=== PATIENT | male | born 1990 | race African-American/Black ===

== ENCOUNTER 2017-08-24 08:49 | Emergency (ER) | payer SELFPAY ==
[2017-08-24 09:09] LABS: ADD MAN DIFF? NO
[2017-08-24] MEDS ORDERED: ONDANSETRON PF 4 MG/2 ML VIAL. ×2 (09:10)
[2017-08-24 09:13] LABS: BASO # 0.1 x10^3/uL (0.0-0.2); BASO % 1 % (0-3); EOS % 0 % (0-3); HEMATOCRIT 49.5 % (39.0-53.0); HEMOGLOBIN 16.6 g/dL (13.0-17.5); LYMPH # 1.5 x10^3/uL (1.0-4.8); LYMPH % 16 % (24-48); MEAN CORPUSCULAR HEMOGLOBIN 34 pg (25-35); MEAN CORPUSCULAR HGB CONC 34 g/dL (31-37); MEAN CORPUSCULAR VOLUME 101 fL (79-100); MONO # 0.5 x10^3/uL (0.0-1.1); MONO % 6 % (0-9); NEUT # 7.1 x10^3uL (1.8-7.7); NEUT % 78 % (31-73); PLATELET COUNT 290 x10^3/uL (140-400); RED BLOOD COUNT 4.91 x10^6/uL (4.30-5.70); RED CELL DISTRIBUTION WIDTH 12.7 % (11.5-14.5); WHITE BLOOD COUNT 9.2 x10^3/uL (4.0-11.0)
[2017-08-24] MEDS: ONDANSETRON PF 4 MG/2 ML VIAL. IV ×2 (09:19)
[2017-08-24] MEDS: IV NORMAL SALINE 1000ML BAG 1,000 ML IV ×4 (09:20→11:21)
[2017-08-24 09:29] LABS: ANION GAP 13 (6-14); BLOOD UREA NITROGEN 13 mg/dL (8-26); CALCIUM 9.8 mg/dL (8.5-10.1); CARBON DIOXIDE 23 mmol/L (21-32); CHLORIDE 103 mmol/L (98-107); CREATININE 1.1 mg/dL (0.7-1.3); GFR 79.1; GLUCOSE 137 mg/dL (70-99); SODIUM 139 mmol/L (136-145)
[2017-08-24 09:36] LABS: ALBUMIN 4.1 g/dL (3.4-5.0); ALK PHOS 94 U/L (46-116); ALT (SGPT) 21 U/L (16-63); AST (SGOT) 22 U/L (15-37); DIRECT BILIRUBIN 0.1 mg/dL (0.0-0.2); LIPASE 93 U/L (73-393); TOTAL BILIRUBIN 0.4 mg/dL (0.2-1.0); TOTAL PROTEIN 8.1 g/dL (6.4-8.2)
[2017-08-24 09:42] LABS: CKMB INDEX 0.3 % (0-4); CKMB MASS 1.2 ng/mL (0.0-3.6); CREATINE KINASE 395 U/L (39-308)
[2017-08-24] MEDS: HALOPERIDOL LACTATE 5 MG/ML VIAL. IVP ×2 (11:36)
== END 2017-08-24 12:30 | disposition home or self-care (01) ==
LOC: ER 08:49
DX: R11.2 Nausea with vomiting, unspecified (principal)
CPT/HCPCS: 36415; 80048; 80076; 82553; 83690; 85025; 96360; 96361; 96374; 96375; 99285-25; J1630; J2405; J7030

== ENCOUNTER 2017-08-26 09:39 | Emergency (ER) | payer SELFPAY ==
[2017-08-26 10:28] LABS: ADD MAN DIFF? NO
[2017-08-26 10:34] LABS: BASO # 0.1 x10^3/uL (0.0-0.2); BASO % 1 % (0-3); EOS % 0 % (0-3); HEMATOCRIT 50.2 % (39.0-53.0); HEMOGLOBIN 17.1 g/dL (13.0-17.5); LYMPH # 1.7 x10^3/uL (1.0-4.8); LYMPH % 20 % (24-48); MEAN CORPUSCULAR HEMOGLOBIN 34 pg (25-35); MEAN CORPUSCULAR HGB CONC 34 g/dL (31-37); MEAN CORPUSCULAR VOLUME 99 fL (79-100); MONO % 12 % (0-9); NEUT # 5.4 x10^3uL (1.8-7.7); NEUT % 67 % (31-73); PLATELET COUNT 261 x10^3/uL (140-400); RED BLOOD COUNT 5.08 x10^6/uL (4.30-5.70); RED CELL DISTRIBUTION WIDTH 12.4 % (11.5-14.5); WHITE BLOOD COUNT 8.1 x10^3/uL (4.0-11.0)
[2017-08-26 10:43] LABS: ETHANOL < 10 mg/dL (0-10)
[2017-08-26 10:43] LABS: ANION GAP 13 (6-14); BLOOD UREA NITROGEN 16 mg/dL (8-26); BUN/CREATININE RATIO 12 (6-20); CALCIUM 10.1 mg/dL (8.5-10.1); CARBON DIOXIDE 28 mmol/L (21-32); CHLORIDE 95 mmol/L (98-107); CREATININE 1.3 mg/dL (0.7-1.3); GLUCOSE 104 mg/dL (70-99); POTASSIUM 3.7 mmol/L (3.5-5.1); SODIUM 136 mmol/L (136-145)
[2017-08-26] MEDS: ONDANSETRON PF 4 MG/2 ML VIAL. IV ×2 (10:44)
[2017-08-26] MEDS: IV NORMAL SALINE 1000ML BAG 1,000 ML IV ×2 (10:45)
[2017-08-26] MEDS: KETOROLAC 30 MG/ML INJ. IV ×2 (10:45)
[2017-08-26] MEDS: FAMOTIDINE 20 MG/2 ML VIAL IVP ×2 (10:45)
[2017-08-26 10:50] LABS: ALBUMIN 4.2 g/dL (3.4-5.0); ALBUMIN/GLOBULIN RATIO 1.2 (1.0-1.7); ALK PHOS 93 U/L (46-116); ALT (SGPT) 55 U/L (16-63); AST (SGOT) 53 U/L (15-37); LIPASE 112 U/L (73-393); TOTAL BILIRUBIN 0.9 mg/dL (0.2-1.0); TOTAL PROTEIN 7.7 g/dL (6.4-8.2)
[2017-08-26 11:35] LABS: BILIRUBIN,URINE NEGATIVE (NEG); CLARITY,URINE CLOUDY; COLOR,URINE AMBER; GLUCOSE,URINE NEGATIVE (NEG); NITRITE,URINE NEGATIVE (NEG); PROTEIN,URINE 30 mg/dL (NEG-TRACE); UROBILINOGEN,URINE 0.2 mg/dL (0.2 mg/dL)
[2017-08-26 11:42] LABS: AMPHETAMINE/METHAMPHETAMINE NEG (NEG); BARBITURATES NEG (NEG); BENZODIAZEPINES NEG (NEG); CANNABINOIDS POS (NEG); COCAINE NEG (NEG); ETHANOL, URINE NEG (NEG); METHADONE NEG (NEG); OPIATES NEG (NEG); PHENCYCLIDINE NEG (NEG)
[2017-08-26 11:51] LABS: BACTERIA,URINE MOD /HPF (0-FEW); RBC,URINE 0 /HPF (0-2); SQUAMOUS EPITHELIAL CELL,UR FEW /LPF; WBC,URINE >40 /HPF (0-4)
== END 2017-08-26 13:11 | disposition home or self-care (01) ==
LOC: ER 09:39
DX: K21.9 Gastro-esophageal reflux disease without esophagitis (principal); F12.90 Cannabis use, unspecified, uncomplicated; F41.9 Anxiety disorder, unspecified; G89.29 Other chronic pain
CPT/HCPCS: 36415; 80053; 80307; 81001; 83690; 85025; 96361; 96374; 96375; 99284-25; G0480; J1885; J2060; J2405; J7030; S0028

== ENCOUNTER 2017-10-22 07:35 | Emergency (ER) | payer SELFPAY ==
[2017-10-22] MEDS ORDERED: 0.9 % SODIUM CHLORIDE 10 ML DISP.SYRIN. IV (08:30)
[2017-10-22] MEDS: IV NORMAL SALINE 1000ML BAG 1,000 ML IV (08:50)
[2017-10-22] MEDS: fentaNYL PF VIAL 100 MCG/2 ML VIAL IV (08:50)
[2017-10-22] MEDS: ONDANSETRON PF 4 MG/2 ML VIAL. IV (08:50)
[2017-10-22 08:53] LABS: BASO # 0.1 x10^3/uL (0.0-0.2); BASO % 1 % (0-3); BILIRUBIN,URINE NEGATIVE (NEG); CLARITY,URINE TURBID; COLOR,URINE YELLOW; EOS % 0 % (0-3); GLUCOSE,URINE NEGATIVE (NEG); HEMOGLOBIN 15.6 g/dL (13.0-17.5); LYMPH # 0.6 x10^3/uL (1.0-4.8); LYMPH % 5 % (24-48); MEAN CORPUSCULAR HEMOGLOBIN 34 pg (25-35); MEAN CORPUSCULAR HGB CONC 34 g/dL (31-37); MEAN CORPUSCULAR VOLUME 100 fL (79-100); MONO # 0.3 x10^3/uL (0.0-1.1); MONO % 3 % (0-9); NEUT # 10.1 x10^3uL (1.8-7.7); NEUT % 92 % (31-73); NITRITE,URINE NEGATIVE (NEG); PH,URINE 7.5; PLATELET COUNT 288 x10^3/uL (140-400); PROTEIN,URINE 30 mg/dL (NEG-TRACE); RED BLOOD COUNT 4.61 x10^6/uL (4.30-5.70); RED CELL DISTRIBUTION WIDTH 12.5 % (11.5-14.5); UROBILINOGEN,URINE 0.2 mg/dL (0.2 mg/dL); WHITE BLOOD COUNT 11.1 x10^3/uL (4.0-11.0)
[2017-10-22 08:55] LABS: ADD MAN DIFF? YES
[2017-10-22 09:06] LABS: ANION GAP 14 (6-14); BLOOD UREA NITROGEN 13 mg/dL (8-26); CALCIUM 9.6 mg/dL (8.5-10.1); CARBON DIOXIDE 24 mmol/L (21-32); CHLORIDE 105 mmol/L (98-107); CREATININE 1.2 mg/dL (0.7-1.3); GFR 86.6; GLUCOSE 131 mg/dL (70-99); POTASSIUM 4.2 mmol/L (3.5-5.1); SODIUM 143 mmol/L (136-145)
[2017-10-22 09:11] LABS: ALBUMIN 4.2 g/dL (3.4-5.0); ALK PHOS 102 U/L (46-116); ALT (SGPT) 39 U/L (16-63); AST (SGOT) 25 U/L (15-37); DIRECT BILIRUBIN 0.1 mg/dL (0.0-0.2); LIPASE 61 U/L (73-393); TOTAL BILIRUBIN 0.4 mg/dL (0.2-1.0); TOTAL PROTEIN 7.9 g/dL (6.4-8.2)
[2017-10-22 09:12] LABS: TROPONINI < 0.017 ng/mL (0.000-0.055)
[2017-10-22 09:14] LABS: RBC,URINE 0 /HPF (0-2)
[2017-10-22 09:15] LABS: AMORPHOUS SEDIMENT,UR PRESENT /HPF; BACTERIA,URINE FEW /HPF (0-FEW); SQUAMOUS EPITHELIAL CELL,UR FEW /LPF
[2017-10-22] MEDS ORDERED: CONTRAST GIVEN MC (09:30)
[2017-10-22] MEDS: IOHEXOL 300 MG/ML 100ML VIAL. IV (09:30)
[2017-10-22 12:06] LABS: % BANDS 1 % (0-9); % LYMPHS 7 % (24-48); % MONOS 3 % (0-10); % SEGS 89 % (35-66)
[2017-10-22 12:09] LABS: PLT ESTIMATE ADEQUATE (ADEQUATE)
== END 2017-10-22 10:10 | disposition home or self-care (01) ==
LOC: ER 07:35
DX: E86.0 Dehydration (principal); R10.84 Generalized abdominal pain; K21.9 Gastro-esophageal reflux disease without esophagitis; K58.0 Irritable bowel syndrome with diarrhea; F12.10 Cannabis abuse, uncomplicated; F10.10 Alcohol abuse, uncomplicated; F17.210 Nicotine dependence, cigarettes, uncomplicated
CPT/HCPCS: 36415; 74177; 80048; 80076; 81001; 83690; 84484; 85007; 85025; 87086; 93005; 96361; 96374; 96375; 99285-25; J2060; J2405; J3010; J7030; Q9967

== ENCOUNTER 2017-10-23 10:07 | Inpatient (IN) | payer SELFPAY ==
[2017-10-23] MEDS: IV NORMAL SALINE 1000ML BAG 1,000 ML IV ×2 (11:06→16:15)
[2017-10-23] MEDS: diphenhydrAMINE 50 MG/ML VIAL IVP (11:06)
[2017-10-23] MEDS: METOCLOPRAMIDE HCL 10 MG/2 ML VIAL. IV ×2 (11:06→18:45)
[2017-10-23 11:15] LABS: ADD MAN DIFF? NO
[2017-10-23 11:19] LABS: BASO % 0 % (0-3); EOS % 0 % (0-3); HEMATOCRIT 50.2 % (39.0-53.0); HEMOGLOBIN 17.2 g/dL (13.0-17.5); LYMPH # 1.5 x10^3/uL (1.0-4.8); LYMPH % 15 % (24-48); MEAN CORPUSCULAR HEMOGLOBIN 34 pg (25-35); MEAN CORPUSCULAR HGB CONC 34 g/dL (31-37); MEAN CORPUSCULAR VOLUME 100 fL (79-100); MONO # 0.8 x10^3/uL (0.0-1.1); MONO % 8 % (0-9); NEUT # 7.7 x10^3uL (1.8-7.7); NEUT % 77 % (31-73); PLATELET COUNT 296 x10^3/uL (140-400); RED BLOOD COUNT 5.04 x10^6/uL (4.30-5.70); RED CELL DISTRIBUTION WIDTH 12.4 % (11.5-14.5)
[2017-10-23 11:32] LABS: ANION GAP 11 (6-14); BLOOD UREA NITROGEN 16 mg/dL (8-26); BUN/CREATININE RATIO 13 (6-20); CALCIUM 9.5 mg/dL (8.5-10.1); CARBON DIOXIDE 25 mmol/L (21-32); CHLORIDE 102 mmol/L (98-107); CREATININE 1.2 mg/dL (0.7-1.3); GFR 86.6; GLUCOSE 108 mg/dL (70-99); POTASSIUM 3.5 mmol/L (3.5-5.1); SODIUM 138 mmol/L (136-145)
[2017-10-23 11:38] LABS: ALBUMIN 4.2 g/dL (3.4-5.0); ALBUMIN/GLOBULIN RATIO 1.1 (1.0-1.7); ALK PHOS 95 U/L (46-116); ALT (SGPT) 41 U/L (16-63); AST (SGOT) 25 U/L (15-37); LIPASE 90 U/L (73-393); TOTAL BILIRUBIN 0.5 mg/dL (0.2-1.0)
[2017-10-23] MEDS ORDERED: ACETAMINOPHEN 325 MG TABLET. PO (12:30)
[2017-10-23] MEDS: ONDANSETRON PF 4 MG/2 ML VIAL. IV ×2 (16:15→19:33)
[2017-10-23] MEDS: ENOXAPARIN 40 MG/0.4 ML SYRINGE. SQ (18:45)
[2017-10-24] MEDS: METOCLOPRAMIDE HCL 10 MG/2 ML VIAL. IV ×3 (00:29→11:24)
[2017-10-24] MEDS: IV NORMAL SALINE 1000ML BAG 1,000 ML IV ×3 (00:29→11:25)
[2017-10-24 03:57] LABS: ADD MAN DIFF? NO
[2017-10-24 05:18] LABS: BASO % 1 % (0-3); EOS % 0 % (0-3); HEMATOCRIT 48.2 % (39.0-53.0); HEMOGLOBIN 16.7 g/dL (13.0-17.5); LYMPH # 1.9 x10^3/uL (1.0-4.8); LYMPH % 26 % (24-48); MEAN CORPUSCULAR HEMOGLOBIN 35 pg (25-35); MEAN CORPUSCULAR HGB CONC 35 g/dL (31-37); MEAN CORPUSCULAR VOLUME 100 fL (79-100); MONO # 0.8 x10^3/uL (0.0-1.1); MONO % 10 % (0-9); NEUT # 4.8 x10^3uL (1.8-7.7); NEUT % 64 % (31-73); PLATELET COUNT 277 x10^3/uL (140-400); RED BLOOD COUNT 4.81 x10^6/uL (4.30-5.70); RED CELL DISTRIBUTION WIDTH 12.5 % (11.5-14.5); WHITE BLOOD COUNT 7.6 x10^3/uL (4.0-11.0)
[2017-10-24 06:16] LABS: ALBUMIN 3.7 g/dL (3.4-5.0); ALK PHOS 85 U/L (46-116); ALT (SGPT) 33 U/L (16-63); ANION GAP 13 (6-14); AST (SGOT) 20 U/L (15-37); BLOOD UREA NITROGEN 15 mg/dL (8-26); BUN/CREATININE RATIO 13 (6-20); CALCIUM 8.7 mg/dL (8.5-10.1); CARBON DIOXIDE 25 mmol/L (21-32); CHLORIDE 102 mmol/L (98-107); CREATININE 1.2 mg/dL (0.7-1.3); GFR 86.6; GLUCOSE 83 mg/dL (70-99); POTASSIUM 3.5 mmol/L (3.5-5.1); SODIUM 140 mmol/L (136-145); TOTAL BILIRUBIN 0.7 mg/dL (0.2-1.0); TOTAL PROTEIN 7.3 g/dL (6.4-8.2)
[2017-10-24 06:52] LABS: BILIRUBIN,URINE NEGATIVE (NEG); CLARITY,URINE CLEAR; COLOR,URINE YELLOW; GLUCOSE,URINE NEGATIVE (NEG); NITRITE,URINE NEGATIVE (NEG); PROTEIN,URINE NEGATIVE (NEG-TRACE); UROBILINOGEN,URINE 0.2 mg/dL (0.2 mg/dL)
[2017-10-24 06:57] LABS: BACTERIA,URINE FEW /HPF (0-FEW); RBC,URINE OCC /HPF (0-2); WBC,URINE 20-40 /HPF (0-4)
[2017-10-24] MEDS ORDERED: CALCIUM CARBONATE 500 MG TAB.CHEW PO (11:00)
[2017-10-24] MEDS: LIDO:MAALOX 1:1 20 ML SINGLE DOSE. PO (11:23)
[2017-10-24] MEDS: FAMOTIDINE 20 MG/2 ML VIAL IVP (11:24)
[2017-10-24] MEDS: ONDANSETRON PF 4 MG/2 ML VIAL. IV (11:35)
[2017-10-24] MEDS: chlorproMAZINE 25 MG TABLET PO (14:52)
[2017-10-24] MEDS: cefTRIAXone IV Push 1 GM VIAL. IVP (14:52)
[2017-10-24] MEDS ORDERED: ACETAMINOPHEN 325 MG TABLET. PO (18:00)
[2017-10-24] MEDS ORDERED: FAMOTIDINE 20 MG/2 ML VIAL IVP (21:00)
[2017-10-24] MEDS ORDERED: LACTOBACILLUS RHAMNOSUS GG 1 CAPSULE. PO (21:00)
== END 2017-10-24 22:20 | disposition home or self-care (01) | DRG 897 ==
LOC: ER 10:07 → 6 SOUTH 12:13
DX: F12.188 Cannabis abuse with other cannabis-induced disorder (principal); E86.0 Dehydration; K21.9 Gastro-esophageal reflux disease without esophagitis; F41.9 Anxiety disorder, unspecified; R11.2 Nausea with vomiting, unspecified; R06.6 Hiccough; Z79.899 Other long term (current) drug therapy
CPT/HCPCS: 36415; 80053; 81001; 83690; 85025; 96361; 96374; 96375; 99285; 99285-25; J0696; J1200; J1650; J2060; J2405; J2765; J7030; Q0161; S0028

== ENCOUNTER 2018-05-30 07:04 | Observation (INO) | payer SELFPAY ==
[~2018-05-30] VITALS: Ht 177.8 cm; Wt 66.8 kg
[~2018-05-30 07:04] MED LIST: DIPH1TAB PO; HYOS0.12 PO; OMEP20CA9 PO; ONDA4TAB10 PO; ONDA4TAB10 SL; PROC10TA57 PO; RANI300T3 PO; SERT25TA PO; SUCR1TAB35 PO
[2018-05-30] MEDS ORDERED: ONDANSETRON PF 4 MG/2 ML VIAL. ONE (07:35)
[2018-05-30 07:46] LABS: BASO # 0.1 x10^3/uL (0.0-0.2); BASO % 1 % (0-3); EOS # 0.5 x10^3/uL (0.0-0.7); EOS % 6 % (0-3); HEMATOCRIT 45.2 % (39.0-53.0); HEMOGLOBIN 15.6 g/dL (13.0-17.5); LYMPH # 1.5 x10^3/uL (1.0-4.8); LYMPH % 17 % (24-48); MEAN CORPUSCULAR HEMOGLOBIN 34 pg (25-35); MEAN CORPUSCULAR HGB CONC 35 g/dL (31-37); MEAN CORPUSCULAR VOLUME 100 fL (79-100); MONO # 0.7 x10^3/uL (0.0-1.1); MONO % 8 % (0-9); NEUT # 5.8 x10^3uL (1.8-7.7); NEUT % 68 % (31-73); PLATELET COUNT 292 x10^3/uL (140-400); RED BLOOD COUNT 4.54 x10^6/uL (4.30-5.70); RED CELL DISTRIBUTION WIDTH 12.8 % (11.5-14.5); WHITE BLOOD COUNT 8.6 x10^3/uL (4.0-11.0)
--- NOTE | 2018-05-30 07:58 | PHYS DOC ---
Past Medical History Past Medical History: Anxiety, GERD, Other Additional Past Medical Histor: ETOH abuse Past Surgical History: No Surgical History Alcohol Use: Heavy Drug Use: Marijuana Adult General Chief Complaint Chief Complaint: NAUSEA/VOMITING/DIARRHA HPI HPI 28-year-old male presenting to the emergency department today with nausea and vomiting this started about 3 AM this morning. He denies any pain in his abdomen or chest. He has a history of gastritis and GERD. The vomiting is a light green colored vomit. He denies any history of abdominal surgeries or any other surgeries. He use to drink heavily in the spring but stopped drinking heavily over the past 6-9 months. His last drink was more than a week ago. He denies any fevers but has had chills. Location GI tract. Duration intermittent. No alleviating factors. No treatments taken prior to arrival. Review of systems is negative for chest pain abdominal pain fevers chills. He denies shortness of breath. He endorses having loose stools and flatus. Patient denies having a headache neck stiffness or recent head injury. All other review of systems is negative unless otherwise noted in history of present illness. ED course: 28-year-old male presenting with nausea vomiting and diarrhea. On arrival the patient's vital signs are within normal limits. On examination he has a soft and nontender abdomen. Nondistended. No rebound tenderness or guarding. Negative McBurney's point. Negative Haynes sign. We will give the patient IV fluids nausea and lorazepam. Blood work sent. CBC unremarkable. Chemistry panel unremarkable. Lipase normal. Patient was given a liter of saline with thiamine. Zofran and Reglan given for nausea. On reexamination he is continuing to have vomiting. We will admit the patient for monitoring. Dr. Nathan accepts and will admit. Review of Systems Review of Systems SEE ABOVE. Current Medications Current Medications Current Medications Medications (Trade) Dose Ordered Sig/Cristian Start Time Stop Time Status Last Admin Dose Admin Haloperidol Lactate (Haldol Inj) 5 mg 1X ONCE 05/30/18 10:00 05/30/18 10:01 DC 05/30/18 10:03 5 MG Info (CONTRAST GIVEN -- Rx MONITORING) 1 each PRN DAILY PRN 05/30/18 08:30 06/01/18 08:29 Iohexol (Omnipaque 300 Mg/ml) 75 ml 1X ONCE 05/30/18 08:30 05/30/18 08:31 DC 05/30/18 08:41 75 ML Lorazepam (Ativan) 1 mg 1X ONCE 05/30/18 08:00 05/30/18 08:01 DC 05/30/18 07:58 1 MG Metoclopramide HCl (Reglan Vial) 10 mg 1X ONCE 05/30/18 10:00 05/30/18 10:00 DC Multivitamins 10 ml/Thiamine HCl 100 mg/Folic Acid 1 mg/Sodium Chloride 1,011.2 ml @ 1,000.088 mls/hr 1X ONCE 05/30/18 08:30 05/30/18 09:30 DC 05/30/18 08:17 1,000.088 MLS/HR Ondansetron HCl (Zofran) 4 mg PRN Q8HRS PRN 05/30/18 10:00 05/31/18 09:59 05/30/18 17:09 4 MG Sodium Chloride 1,000 ml @ 125 mls/hr Q8H 05/30/18 09:59 05/30/18 13:58 DC 05/30/18 10:04 125 MLS/HR Allergies Allergies Allergies Coded Allergies Type Severity Reaction Last Updated Verified No Known Drug Allergies 08/24/17 No Physical Exam Physical Exam SEE ABOVE Constitutional: Well developed, well nourished, non-toxic appearance. vomited while i was in the room HENT: Normocephalic, atraumatic, bilateral external ears normal, oropharynx moist, no oral exudates, nose normal. [] Range of motion of the neck. Negative Brudzinski sign. Negative Kernig sign. Eyes: PERRLA, EOMI, conjunctiva normal, no discharge. [] Neck: Normal range of motion, no tenderness, supple, no stridor. [] Cardiovascular:Heart rate regular rhythm, no murmur [] Lungs & Thorax: Bilateral breath sounds clear to auscultation [] Abdomen: Bowel sounds normal, soft, no tenderness, no masses, no pulsatile masses. [] Skin: Warm, dry, no erythema, no rash. [] Back: No tenderness, no CVA tenderness. [] Extremities: No tenderness, no cyanosis, no clubbing, ROM intact, no edema. [] Neurologic: Alert and oriented X 3, normal motor function, normal sensory function, no focal deficits noted. [] Psychologic: Affect normal, judgement normal, mood normal. [] Current Patient Data Vital Signs Vital Signs Date Time Temp Pulse Resp B/P (MAP) Pulse Ox O2 Delivery O2 Flow Rate FiO2 05/30/18 09:50 66 148/65 (92) 05/30/18 09:20 66 Room Air 05/30/18 07:38 97.6 16 97.6 Lab Values Laboratory Tests Test 05/30/18 07:30 White Blood Count 8.6 x10^3/uL (4.0-11.0) Red Blood Count 4.54 x10^6/uL (4.30-5.70) Hemoglobin 15.6 g/dL (13.0-17.5) Hematocrit 45.2 % (39.0-53.0) Mean Corpuscular Volume 100 fL (79-100) Mean Corpuscular Hemoglobin 34 pg (25-35) Mean Corpuscular Hemoglobin Concent 35 g/dL (31-37) Red Cell Distribution Width 12.8 % (11.5-14.5) Platelet Count 292 x10^3/uL (140-400) Neutrophils (%) (Auto) 68 % (31-73) Lymphocytes (%) (Auto) 17 % (24-48) L Monocytes (%) (Auto) 8 % (0-9) Eosinophils (%) (Auto) 6 % (0-3) H Basophils (%) (Auto) 1 % (0-3) Neutrophils # (Auto) 5.8 x10^3uL (1.8-7.7) Lymphocytes # (Auto) 1.5 x10^3/uL (1.0-4.8) Monocytes # (Auto) 0.7 x10^3/uL (0.0-1.1) Eosinophils # (Auto) 0.5 x10^3/uL (0.0-0.7) Basophils # (Auto) 0.1 x10^3/uL (0.0-0.2) Sodium Level 139 mmol/L (136-145) Potassium Level 3.9 mmol/L (3.5-5.1) Chloride Level 105 mmol/L (98-107) Carbon Dioxide Level 24 mmol/L (21-32) Anion Gap 10 (6-14) Blood Urea Nitrogen 10 mg/dL (8-26) Creatinine 1.2 mg/dL (0.7-1.3) Estimated GFR (Cockcroft-Gault) 86.0 Glucose Level 124 mg/dL (70-99) H Calcium Level 9.3 mg/dL (8.5-10.1) Total Bilirubin 0.1 mg/dL (0.2-1.0) L Direct Bilirubin 0.1 mg/dL (0.0-0.2) Aspartate Amino Transferase (AST) 17 U/L (15-37) Alanine Aminotransferase (ALT) 26 U/L (16-63) Alkaline Phosphatase 95 U/L (46-116) Total Protein 7.5 g/dL (6.4-8.2) Albumin 3.9 g/dL (3.4-5.0) Lipase 195 U/L (73-393) Laboratory Tests 05/30/18 07:30 Laboratory Tests 05/30/18 07:30 EKG EKG [] Radiology/Procedures Radiology/Procedures [] Course & Med Decision Making Course & Med Decision Making Pertinent Labs and Imaging studies reviewed. (See chart for details) [] Dragon Disclaimer Dragon Disclaimer This electronic medical record was generated, in whole or in part, using a voice recognition dictation system. Departure Departure Impression: Primary Impression: Nausea & vomiting Disposition: ADMITTED INPATIENT Condition: STABLE Referrals: NO PCP (PCP) BRADY TAYLOR MD May 30, 2018 07:58
[2018-05-30 08:14] LABS: CALCIUM 9.3 mg/dL (8.5-10.1); CREATININE 1.2 mg/dL (0.7-1.3); POTASSIUM 3.9 mmol/L (3.5-5.1)
[2018-05-30 08:20] LABS: ALBUMIN 3.9 g/dL (3.4-5.0); DIRECT BILIRUBIN 0.1 mg/dL (0.0-0.2); TOTAL BILIRUBIN 0.1 mg/dL (0.2-1.0); TOTAL PROTEIN 7.5 g/dL (6.4-8.2)
[2018-05-30] MEDS ORDERED: CONTRAST GIVEN. MC PRN (08:30)
[2018-05-30] MEDS ORDERED: MULTIVIT INFUSN,ADULT 4,VIT K 10 ML, THIAMINE INJ 100 MG, FOLIC ACID INJ 1 MG in IV NOR... IV ONE (08:30)
[2018-05-30] MEDS ORDERED: IOHEXOL 300 MG/ML 100ML VIAL. IV ONE (08:30)
--- NOTE | 2018-05-30 08:56 | RAD ---
CT of the abdomen and pelvis with contrast, 05/30/2018: HISTORY: Abdominal pain, nausea and vomiting Multidetector CT imaging was performed following an IV bolus injection of iodinated contrast material. No oral contrast material was administered for this study. This limits evaluation of the intra-abdominal structures, particularly in a thin patient such as this with very little intra-abdominal fat the organs. No hepatic abnormality is seen. No dense gallstones are evident. The pancreas cannot be clearly from unopacified bowel. The spleen is of normal size. No renal abnormality is detected. No abdominal or pelvic adenopathy is seen. The bowel loops are not dilated. The appendix is not clearly defined. No free fluid or free air is evident in the abdomen or pelvis. IMPRESSION: No significant abnormality is detected. PQRS Compliance Statement: One or more of the following individualized dose reduction techniques were utilized for this examination: 1. Automated exposure control 2. Adjustment of the mA and/or kV according to patient size 3. Use of iterative reconstruction technique Electronically signed by: Latrell Ludwig MD (05/30/2018 8:53 AM) [facility]
[2018-05-30] MEDS ORDERED: IV NORMAL SALINE 1000ML BAG 1,000 ML IV SCH (09:59)
[2018-05-30] MEDS ORDERED: METOCLOPRAMIDE HCL 10 MG/2 ML VIAL. IV ONE (10:00)
[2018-05-30] MEDS ORDERED: HALOPERIDOL LACTATE 5 MG/ML VIAL. IM ONE (10:00)
[2018-05-30] MEDS: ONDANSETRON PF 4 MG/2 ML VIAL. IV PRN ×2 (10:04→17:09)
[2018-05-30 11:45] VITALS: BP 159/108
[2018-05-30] MEDS: PROCHLORPERAZINE 10 MG/2 ML VIAL. IV PRN (14:28)
[2018-05-30 15:00] VITALS: BP 160/97
[2018-05-30] MEDS ORDERED: IV NORMAL SALINE 1000ML BAG 1,000 ML IV ONE (16:30)
[2018-05-30] MEDS ORDERED: MAG HYDROX/ALUMINUM HYD/SIMETH 30 ML ORAL.SUSP PO PRN (16:30)
[2018-05-30] MEDS ORDERED: MAG HYDROX/ALUMINUM HYD/SIMETH 30 ML ORAL.SUSP PO ONE (17:00)
[2018-05-30 17:23] LABS: BARBITURATES NEG (NEG); BENZODIAZEPINES NEG (NEG); CANNABINOIDS POS (NEG); COCAINE NEG (NEG); METHADONE NEG (NEG); OPIATES NEG (NEG); PHENCYCLIDINE NEG (NEG)
[2018-05-30 17:31] LABS: AMPHETAMINE/METHAMPHETAMINE NEG (NEG)
[2018-05-30 19:24] VITALS: BP 146/94
--- NOTE | 2018-05-30 20:21 | PDOC1 ---
History and Physical History of Present Illness History of Present Illness 28-year-old male presenting to the emergency department today with nausea and vomiting this started about 3 AM this morning. He denies any pain in his abdomen or chest. He has a history of gastritis and GERD. The vomiting is a light green colored vomit. He denies any history of abdominal surgeries or any other surgeries. He use to drink heavily in the spring but stopped drinking heavily over the past 6-9 months. His last drink was more than a week ago. He denies any fevers but has had chills. Location GI tract. Duration intermittent. No alleviating factors. No treatments taken prior to arrival. Review of systems is negative for chest pain abdominal pain fevers chills. He denies shortness of breath. He endorses having loose stools and flatus. Patient denies having a headache neck stiffness or recent head injury. All other review of systems is negative unless otherwise noted in history of present illness. ED course: 28-year-old male presenting with nausea vomiting and diarrhea. On arrival the patient's vital signs are within normal limits. On examination he has a soft and nontender abdomen. Nondistended. No rebound tenderness or guarding. Negative McBurney's point. Negative Haynes sign. We will give the patient IV fluids nausea and lorazepam. Blood work sent. CBC unremarkable. Chemistry panel unremarkable. Lipase normal. Patient was given a liter of saline with thiamine. Zofran and Reglan given for nausea. On reexamination he is continuing to have vomiting. We will admit the patient for monitoring. Dr. Nathan accepts and will admit. On my exam: aao x3, sweating, otherwise appears comfortable he states he has a h/o gastritis and it unusual passes with anti- nausea meds and mylanta he admits to drinking ETOH the day before yesterday denies drugs ( except cannabinoids) and daily drinking. Past Medical History Cardiovascular: No pertinent hx Pulmonary: No pertinent hx Hepatobiliary: Other Psych: Addictions Rheumatologic: No pertinent hx Endocrine: No pertinent hx Current Problem List Problem List Problems Medical Problems: (1) Nausea & vomiting Status: Acute Current Medications Current Medications Current Medications Medications (Trade) Dose Ordered Sig/Cristian Start Time Stop Time Status Last Admin Dose Admin Al Hydroxide/Mg Hydroxide (Mylanta Plus Xs) 30 ml 1X ONCE 05/30/18 17:00 05/30/18 17:01 DC 05/30/18 17:09 30 ML Haloperidol Lactate (Haldol Inj) 5 mg 1X ONCE 05/30/18 10:00 05/30/18 10:01 DC 05/30/18 10:03 5 MG Info (CONTRAST GIVEN -- Rx MONITORING) 1 each PRN DAILY PRN 05/30/18 08:30 06/01/18 08:29 Iohexol (Omnipaque 300 Mg/ml) 75 ml 1X ONCE 05/30/18 08:30 05/30/18 08:31 DC 05/30/18 08:41 75 ML Lorazepam (Ativan) 1 mg 1X ONCE 05/30/18 08:00 05/30/18 08:01 DC 05/30/18 07:58 1 MG Metoclopramide HCl (Reglan Vial) 10 mg 1X ONCE 05/30/18 10:00 05/30/18 10:00 DC Multivitamins 10 ml/Thiamine HCl 100 mg/Folic Acid 1 mg/Sodium Chloride 1,011.2 ml @ 1,000.088 mls/hr 1X ONCE 05/30/18 08:30 05/30/18 09:30 DC 05/30/18 08:17 1,000.088 MLS/HR Ondansetron HCl (Zofran) 4 mg PRN Q8HRS PRN 05/30/18 10:00 05/31/18 09:59 05/30/18 17:09 4 MG Prochlorperazine Edisylate (Compazine) 10 mg PRN Q6HRS PRN 05/30/18 14:15 05/30/18 14:28 10 MG Sodium Chloride 1,000 ml @ 500 mls/hr 1X ONCE 05/30/18 16:30 05/30/18 18:29 DC 05/30/18 17:08 500 MLS/HR Allergies Allergies Allergies Coded Allergies Type Severity Reaction Last Updated Verified No Known Drug Allergies 08/24/17 No ROS Review of System CONSTITUTIONAL: No fever or chills EYES: No recent changes SKIN: No rash or itching CARDIOVASCULAR: No chest pain, syncope, palpitations, or edema RESPIRATORY: No SOB or cough GASTROINTESTINAL: No nausea, vomiting or abdominal pain NEUROLOGICAL: No headaches or weakness ENDOCRINE: No cold or heat intolerance GENITOURINARY: No urgency or frequency of urination MUSCULOSKELETAL: No back pain or joint pain LYMPHATICS: No enlarged lymph nodes PSYCHIATRIC: No anxiety or depression Physical Exam Physical Exam GEN.: No apparent distress. Alert and oriented. HEENT: Head is normocephalic, atraumatic NECK: Supple. LUNGS: Clear to auscultation. HEART: RRR, S1, S2 present. Peripheral pulses intact ABDOMEN: Soft, nontender. Positive bowel sounds. EXTREMITIES: Without any cyanosis. NEUROLOGIC: Normal speech, normal tone PSYCHIATRIC: Normal affect, normal mood. SKIN: No ulcerations Vitals Vitals Vital Signs Date Time Temp Pulse Resp B/P (MAP) Pulse Ox O2 Delivery O2 Flow Rate FiO2 05/30/18 19:24 98.4 85 21 146/94 (111) 100 Room Air 98.4 Labs Labs Laboratory Tests Test 05/30/18 07:30 05/30/18 15:31 05/30/18 17:05 White Blood Count 8.6 x10^3/uL (4.0-11.0) Red Blood Count 4.54 x10^6/uL (4.30-5.70) Hemoglobin 15.6 g/dL (13.0-17.5) Hematocrit 45.2 % (39.0-53.0) Mean Corpuscular Volume 100 fL (79-100) Mean Corpuscular Hemoglobin 34 pg (25-35) Mean Corpuscular Hemoglobin Concent 35 g/dL (31-37) Red Cell Distribution Width 12.8 % (11.5-14.5) Platelet Count 292 x10^3/uL (140-400) Neutrophils (%) (Auto) 68 % (31-73) Lymphocytes (%) (Auto) 17 % (24-48) Monocytes (%) (Auto) 8 % (0-9) Eosinophils (%) (Auto) 6 % (0-3) Basophils (%) (Auto) 1 % (0-3) Neutrophils # (Auto) 5.8 x10^3uL (1.8-7.7) Lymphocytes # (Auto) 1.5 x10^3/uL (1.0-4.8) Monocytes # (Auto) 0.7 x10^3/uL (0.0-1.1) Eosinophils # (Auto) 0.5 x10^3/uL (0.0-0.7) Basophils # (Auto) 0.1 x10^3/uL (0.0-0.2) Sodium Level 139 mmol/L (136-145) Potassium Level 3.9 mmol/L (3.5-5.1) Chloride Level 105 mmol/L (98-107) Carbon Dioxide Level 24 mmol/L (21-32) Anion Gap 10 (6-14) Blood Urea Nitrogen 10 mg/dL (8-26) Creatinine 1.2 mg/dL (0.7-1.3) Estimated GFR (Cockcroft-Gault) 86.0 Glucose Level 124 mg/dL (70-99) Calcium Level 9.3 mg/dL (8.5-10.1) Total Bilirubin 0.1 mg/dL (0.2-1.0) Direct Bilirubin 0.1 mg/dL (0.0-0.2) Aspartate Amino Transf (AST/SGOT) 17 U/L (15-37) Alanine Aminotransferase (ALT/SGPT) 26 U/L (16-63) Alkaline Phosphatase 95 U/L (46-116) Total Protein 7.5 g/dL (6.4-8.2) Albumin 3.9 g/dL (3.4-5.0) Lipase 195 U/L (73-393) Glucose (Fingerstick) 91 mg/dL (70-99) Urine Opiates Screen Neg (NEG) Urine Methadone Screen Neg (NEG) Urine Barbiturates Neg (NEG) Urine Phencyclidine Screen Neg (NEG) Urine Amphetamine/Methamphetamine Neg (NEG) Urine Benzodiazepines Screen Neg (NEG) Urine Cocaine Screen Neg (NEG) Urine Cannabinoids Screen Pos (NEG) Urine Ethyl Alcohol Neg (NEG) Laboratory Tests Test 05/30/18 07:30 05/30/18 15:31 05/30/18 17:05 White Blood Count 8.6 x10^3/uL (4.0-11.0) Red Blood Count 4.54 x10^6/uL (4.30-5.70) Hemoglobin 15.6 g/dL (13.0-17.5) Hematocrit 45.2 % (39.0-53.0) Mean Corpuscular Volume 100 fL (79-100) Mean Corpuscular Hemoglobin 34 pg (25-35) Mean Corpuscular Hemoglobin Concent 35 g/dL (31-37) Red Cell Distribution Width 12.8 % (11.5-14.5) Platelet Count 292 x10^3/uL (140-400) Neutrophils (%) (Auto) 68 % (31-73) Lymphocytes (%) (Auto) 17 % (24-48) Monocytes (%) (Auto) 8 % (0-9) Eosinophils (%) (Auto) 6 % (0-3) Basophils (%) (Auto) 1 % (0-3) Neutrophils # (Auto) 5.8 x10^3uL (1.8-7.7) Lymphocytes # (Auto) 1.5 x10^3/uL (1.0-4.8) Monocytes # (Auto) 0.7 x10^3/uL (0.0-1.1) Eosinophils # (Auto) 0.5 x10^3/uL (0.0-0.7) Basophils # (Auto) 0.1 x10^3/uL (0.0-0.2) Sodium Level 139 mmol/L (136-145) Potassium Level 3.9 mmol/L (3.5-5.1) Chloride Level 105 mmol/L (98-107) Carbon Dioxide Level 24 mmol/L (21-32) Anion Gap 10 (6-14) Blood Urea Nitrogen 10 mg/dL (8-26) Creatinine 1.2 mg/dL (0.7-1.3) Estimated GFR (Cockcroft-Gault) 86.0 Glucose Level 124 mg/dL (70-99) Calcium Level 9.3 mg/dL (8.5-10.1) Total Bilirubin 0.1 mg/dL (0.2-1.0) Direct Bilirubin 0.1 mg/dL (0.0-0.2) Aspartate Amino Transf (AST/SGOT) 17 U/L (15-37) Alanine Aminotransferase (ALT/SGPT) 26 U/L (16-63) Alkaline Phosphatase 95 U/L (46-116) Total Protein 7.5 g/dL (6.4-8.2) Albumin 3.9 g/dL (3.4-5.0) Lipase 195 U/L (73-393) Glucose (Fingerstick) 91 mg/dL (70-99) Urine Opiates Screen Neg (NEG) Urine Methadone Screen Neg (NEG) Urine Barbiturates Neg (NEG) Urine Phencyclidine Screen Neg (NEG) Urine Amphetamine/Methamphetamine Neg (NEG) Urine Benzodiazepines Screen Neg (NEG) Urine Cocaine Screen Neg (NEG) Urine Cannabinoids Screen Pos (NEG) Urine Ethyl Alcohol Neg (NEG) VTE Prophylaxis Ordered VTE Prophylaxis Devices: Contraindicated VTE Pharmacological Prophylaxi: Yes Assessment/Plan Assessment/Plan ivf anti-nausea meds [place] drug screen ? etoh withdrawl but he is adamant he does not drink daily or use illiegal drugs will hold off on withdrawal protocol for now check DAVID RYAN MD May 30, 2018 20:21
[2018-05-30 23:25] VITALS: BP 130/97
[2018-05-31 03:13] VITALS: BP 128/72
[2018-05-31 07:00] VITALS: BP 140/80
[2018-05-31] MEDS ORDERED: FOLIC ACID 1 MG TABLET. PO SCH (09:00)
[2018-05-31] MEDS ORDERED: MULTIVITAMIN with MINERAL TABLET. PO SCH (09:00)
[2018-05-31] MEDS ORDERED: THIAMINE INJ 100 MG in IV DEXTROSE 5% 50 ML IV SCH (09:00)
--- NOTE | 2018-05-31 10:49 | PDOC3 ---
Discharge Summary Visit Information Date of Admission: May 30, 2018 Date of Discharge: May 31, 2018 Admitting Diagnosis Comment: Nausea and emesis, abdominal pain-result, normal CT Positive for cannabinoids Final Diagnosis Problems Medical Problems: (1) Nausea & vomiting Status: Acute Brief Hospital Course Allergies Allergies Coded Allergies Type Severity Reaction Last Updated Verified No Known Drug Allergies 08/24/17 No Vital Signs Vital Signs Date Time Temp Pulse Resp B/P (MAP) Pulse Ox O2 Delivery O2 Flow Rate FiO2 05/31/18 08:00 Room Air 05/31/18 07:00 98.7 75 16 140/80 (100) 100 98.7 Lab Results Laboratory Tests Test 05/30/18 07:30 05/30/18 15:31 05/30/18 17:05 05/30/18 20:20 White Blood Count 8.6 x10^3/uL (4.0-11.0) Red Blood Count 4.54 x10^6/uL (4.30-5.70) Hemoglobin 15.6 g/dL (13.0-17.5) Hematocrit 45.2 % (39.0-53.0) Mean Corpuscular Volume 100 fL (79-100) Mean Corpuscular Hemoglobin 34 pg (25-35) Mean Corpuscular Hemoglobin Concent 35 g/dL (31-37) Red Cell Distribution Width 12.8 % (11.5-14.5) Platelet Count 292 x10^3/uL (140-400) Neutrophils (%) (Auto) 68 % (31-73) Lymphocytes (%) (Auto) 17 % (24-48) Monocytes (%) (Auto) 8 % (0-9) Eosinophils (%) (Auto) 6 % (0-3) Basophils (%) (Auto) 1 % (0-3) Neutrophils # (Auto) 5.8 x10^3uL (1.8-7.7) Lymphocytes # (Auto) 1.5 x10^3/uL (1.0-4.8) Monocytes # (Auto) 0.7 x10^3/uL (0.0-1.1) Eosinophils # (Auto) 0.5 x10^3/uL (0.0-0.7) Basophils # (Auto) 0.1 x10^3/uL (0.0-0.2) Sodium Level 139 mmol/L (136-145) Potassium Level 3.9 mmol/L (3.5-5.1) Chloride Level 105 mmol/L (98-107) Carbon Dioxide Level 24 mmol/L (21-32) Anion Gap 10 (6-14) Blood Urea Nitrogen 10 mg/dL (8-26) Creatinine 1.2 mg/dL (0.7-1.3) Estimated GFR (Cockcroft-Gault) 86.0 Glucose Level 124 mg/dL (70-99) Calcium Level 9.3 mg/dL (8.5-10.1) Total Bilirubin 0.1 mg/dL (0.2-1.0) Direct Bilirubin 0.1 mg/dL (0.0-0.2) Aspartate Amino Transf (AST/SGOT) 17 U/L (15-37) Alanine Aminotransferase (ALT/SGPT) 26 U/L (16-63) Alkaline Phosphatase 95 U/L (46-116) Total Protein 7.5 g/dL (6.4-8.2) Albumin 3.9 g/dL (3.4-5.0) Lipase 195 U/L (73-393) Glucose (Fingerstick) 91 mg/dL (70-99) Urine Opiates Screen Neg (NEG) Urine Methadone Screen Neg (NEG) Urine Barbiturates Neg (NEG) Urine Phencyclidine Screen Neg (NEG) Urine Amphetamine/Methamphetamine Neg (NEG) Urine Benzodiazepines Screen Neg (NEG) Urine Cocaine Screen Neg (NEG) Urine Cannabinoids Screen Pos (NEG) Urine Ethyl Alcohol Neg (NEG) Lactic Acid Level 3.1 mmol/L (0.4-2.0) Laboratory Tests Test 05/30/18 15:31 05/30/18 17:05 05/30/18 20:20 Glucose (Fingerstick) 91 mg/dL (70-99) Urine Opiates Screen Neg (NEG) Urine Methadone Screen Neg (NEG) Urine Barbiturates Neg (NEG) Urine Phencyclidine Screen Neg (NEG) Urine Amphetamine/Methamphetamine Neg (NEG) Urine Benzodiazepines Screen Neg (NEG) Urine Cocaine Screen Neg (NEG) Urine Cannabinoids Screen Pos (NEG) Urine Ethyl Alcohol Neg (NEG) Lactic Acid Level 3.1 mmol/L (0.4-2.0) Brief Hospital Course Mr. Hall is a 28 old [place] male with no past medical history, acute onset abdominal pain, nausea and emesis. CAT scan and labs are negative. No history of PUD. Does not take any meds. Tested positive for cannabinoids. Ate breakfast and is kind of sitting up still. Can see outpatient GI. Holiday weekend and no one will come here. OP Workup. he is nontoxic appearing with normal workup so far Discussed with mother bedside Can take [id number] Tums Mylanta Prevacid etc. Discussed with RN consults: none Discharge Information Condition at Discharge: Improved, Stable Disposition/Orders: D/C to Home Scheduled Diphenoxylate Hcl/Atropine (Lomotil Tablet) 1 Each Tablet, 1 TAB PO QID, #20 Prescribed by: AUGUSTO SINGH MD on 10/22/17 1006 Hyoscyamine Sulfate (Anaspaz) 0.125 Mg Tab.rapdis, 0.125 MG PO TID for 5 Days, # 15 Prescribed by: AUGUSTO SINGH MD on 10/22/17 1006 Ranitidine Hcl (Zantac) 300 Mg Tablet, 300 MG PO DAILY, (Reported) Entered as Reported by: Inderjit Viera on 10/23/17 1538 Sertraline Hcl (Zoloft) 25 Mg Tablet, 1 TAB PO DAILY, #30 Ref 2 (Reported) Entered as Reported by: Inderjit Viera on 10/23/17 1538 Scheduled PRN Ondansetron (Zofran Odt) 4 Mg Tab.rapdis, 4 MG PO BID PRN for NAUSEA/VOMITING for 5 Days, #10 Prescribed by: AUGUSTO SINGH MD on 10/22/17 1006 EDU GUZMAN MD May 31, 2018 10:49
[2018-05-31 11:00] VITALS: BP 144/100
[2018-05-31] MEDS: PROCHLORPERAZINE 10 MG/2 ML VIAL. IV PRN (13:33)
[2018-05-31 15:00] VITALS: BP 143/93
== END 2018-05-31 17:55 | disposition home or self-care (01) ==
LOC: ER 07:04 → 5 SOUTH 10:00
PROVIDERS: ADMIT Hospitalist; ATTEND Hospitalist
DX: R11.2 Nausea with vomiting, unspecified (principal); K21.9 Gastro-esophageal reflux disease without esophagitis; Z79.899 Other long term (current) drug therapy
CPT/HCPCS: 36415; 74177; 80048; 80076; 80307; 82962; 83605; 83690; 85025; 96361; 96365; 96367; 96372; 96375; 96376; 99284; G0378; J0780; J1630; J2060; J2405; J7030; Q9967; G0379

== ENCOUNTER 2018-10-14 20:19 | Emergency (ER) | payer OTHER ==
[~2018-10-14] VITALS: Ht 177.8 cm; Wt 68.0 kg
[~2018-10-14 20:19] MED LIST changes: +OMEP20CA10 PO; -OMEP20CA9 PO
[2018-10-14 20:23] VITALS: BP 146/88
[2018-10-14] MEDS ORDERED: diphenhydrAMINE HCL 25 MG CAPSULE PO ONE (21:15)
[2018-10-14] MEDS ORDERED: OXYMETAZOLINE 0.05% NASAL SPRAY 30ML BOTTLE. NS ONE (21:15)
[2018-10-14] MEDS ORDERED: predniSONE 10 MG TABLET PO ONE (21:15)
[2018-10-14] MEDS ORDERED: AMOX1TAB61 PO (22:11)
--- NOTE | 2018-10-14 22:12 | PHYS DOC ---
Past Medical History Past Medical History: Anxiety, GERD, Other Additional Past Medical Histor: ETOH abuse, "collapsed lung" Past Surgical History: No Surgical History Alcohol Use: Heavy Drug Use: Marijuana Adult General Chief Complaint Chief Complaint: HEADACHE HPI HPI 28 y/o male presents to ER via POV for c/o rt side headache, rt eye pain w/ photosensitivity, and sinus pressure. He reports he has been having intermittent HAs for past few months however in past few days he has had increased rt side ROSADO with rt ear pressure and sinus congestion/drainage. He reports he has had yellowish/greenish drainage from his nose- denies nose bleeds. He reports he took nyquil and other cold ROSADO OTC meds with minimal relief. He denies dizziness, tinnitus, N/V, or neck stiffness. He denies confusion. He reports appetite has been NL. He denies urinary sxs, fever, or vision changes. He denies previous migraine/ROSADO hx. Review of Systems Review of Systems Constitutional: Denies fever or chills [] Eyes: Denies change in visual acuity. Reports clear eye drainage, photosensitivity, and eye pain HENT: Denies sore throat. Reports sinus congestion denies facial swelling. Reports rt ear pressure. Respiratory: Denies cough or shortness of breath [] Cardiovascular: No additional information not addressed in HPI [] GI: Denies abdominal pain, nausea, vomiting, bloody stools or diarrhea [] : Denies dysuria or hematuria [] Musculoskeletal: Denies back/neck pain or joint pain [] Integument: Denies rash or skin lesions [] Neurologic: Denies headache, focal weakness or sensory changes [] All other systems were reviewed and found to be within normal limits, except as documented in this note. Current Medications Current Medications Current Medications Medications (Trade) Dose Ordered Sig/Cristian Start Time Stop Time Status Last Admin Dose Admin Diphenhydramine HCl (Benadryl) 25 mg 1X ONCE 10/14/18 21:15 10/14/18 21:16 DC 10/14/18 21:18 25 MG Oxymetazoline HCl (Afrin) 2 spray 1X ONCE 10/14/18 21:15 10/14/18 21:16 DC 10/14/18 21:24 2 SPRAY Prednisone (Prednisone) 50 mg 1X ONCE 10/14/18 21:15 4/9/19 21:16 DC 10/14/18 21:18 50 MG Allergies Allergies Allergies Coded Allergies Type Severity Reaction Last Updated Verified No Known Drug Allergies 08/24/17 No Physical Exam Physical Exam Constitutional: Well developed, well nourished, no acute distress, non-toxic appearance. Clear speech HENT: Normocephalic, atraumatic, rt ear exam with erythema at TM without bulging /perforation or purulent drainage, lt ear exam NL- external ears NL, oropharynx moist- mild pharyngeal erythema without swelling, no oral exudates, nose normal. Tender maxillary/frontal sinuses without facial swelling Eyes: 3mm PERRLA, EOMI, no nystagmus, conjunctiva normal, no discharge. [] Neck: Normal range of motion, no tenderness- no nuchal rigidity, supple, no stridor/gross adenopathy Cardiovascular: Heart rate regular rhythm, no murmur [] Lungs & Thorax: Bilateral breath sounds clear to auscultation. Resp. equal/ nonlabored Skin: Warm, dry, no erythema, no rash. [] Back: No tenderness, no CVA tenderness. [] Extremities: No tenderness, no cyanosis, no clubbing, ROM intact, no edema. [] Neurologic: Alert and oriented X 3, normal motor function, normal sensory function, no focal deficits noted. [] Psychologic: Affect normal, judgement normal, mood normal. [] Current Patient Data Vital Signs Vital Signs Date Time Temp Pulse Resp B/P (MAP) Pulse Ox O2 Delivery O2 Flow Rate FiO2 10/14/18 20:23 97.1 74 16 146/88 (107) 100 Room Air 97.1 EKG EKG [] Radiology/Procedures Radiology/Procedures [] Course & Med Decision Making Course & Med Decision Making 2144: Patient was evaluated in the ER for complaints of sinus congestion and headache. Patient was offered IV for lab draw, fluids, and medications for treatment. Patient following discussion on symptoms preferred no IV, tests, or IV fluids preferring oral medications. At this time patient states his pain has subsided. He is in no visible distress and smiling. He states Afrin improved his sinus congestion reporting he is able to breathe out of both nares. He is denying any complaints at this time. He reports he is feeling comfortable with home discharge with no further monitoring or care. Advised patient on over-the- counter ibuprofen and/or Tylenol as directed on container. He was encouraged to increase fluid intake. Will provide prescription for sinus infection as he reports he has had yellowish-green sinus drainage.Education provided on signs and symptoms to return to ER. Discharge instructions were discussed. Patient to follow-up with primary care physician if symptoms persist or with any concerns. Dragon Disclaimer Dragon Disclaimer This electronic medical record was generated, in whole or in part, using a voice recognition dictation system. Departure Departure Impression: Primary Impression: Headache Additional Impression: Sinusitis Referrals: NO PCP (PCP) Patient Instructions: Headache and Allergies, Sinusitis Additional Instructions: Drink plenty of fluids. Tylenol and/or ibuprofen as needed for pain as directed on container. Afrin nasal spray as directed on container avoid using for more than 3 days consecutively to avoid rebound symptoms. If symptoms persist or with concerns follow-up with your primary care physician for reevaluation and further care. Scripts Amoxicillin/Potassium Clav (AUGMENTIN 875-125 TABLET) 1 Each Tablet 1 TAB PO BID, #14 TAB 0 Refills Prov: LAUREN KELLY APRN 10/14/18 Problem Qualifiers LAUREN KELLY APRN Oct 14, 2018 22:12
== END 2018-10-14 22:15 | disposition home or self-care (01) ==
LOC: ER 20:19
DX: R51 Headache (principal); J32.8 Other chronic sinusitis; H57.11 Ocular pain, right eye; F41.9 Anxiety disorder, unspecified; K21.9 Gastro-esophageal reflux disease without esophagitis; F10.20 Alcohol dependence, uncomplicated; Y90.9 Presence of alcohol in blood, level not specified
CPT/HCPCS: 99284; J7512; Q0163

== ENCOUNTER 2019-09-25 13:13 | Inpatient (IN) | payer BC, OTHER ==
[~2019-09-25] VITALS: Ht 177.8 cm; Wt 66.0 kg
[~2019-09-25 13:13] MED LIST changes: +AMOX1TAB61 PO; -OMEP20CA10 PO; +OMEP20CA16 PO
--- NOTE | 2019-09-25 13:42 | PHYS DOC ---
Past Medical History Past Medical History: Anxiety, GERD, Other Additional Past Medical Histor: ETOH abuse, "collapsed lung" Past Surgical History: No Surgical History Smoking Status: Current Some Day Smoker Alcohol Use: Occasionally Drug Use: Marijuana Adult General Chief Complaint Chief Complaint: RAPID HEART RATE HPI HPI Patient is a 29 year old male who presents with palpitations that started an hour ago. The patient denies any other symptoms. The patient states he is at work where he is gone for left. Patient also states he had an episode last weekend that then went away after he burped. The patient denies any history of this other than last weekend. Patient denies any other medical history. He denies any other symptoms. Complete ROS were reviewed and found to be within normal limits, except as documented in the HPI Current Medications Current Medications Current Medications Medications (Trade) Dose Ordered Sig/Cristian Start Time Stop Time Status Last Admin Dose Admin Diltiazem HCl (Cardizem Iv Push) 10 mg 1X STAT 09/25/19 14:29 09/25/19 14:32 DC Diltiazem HCl 125 mg/Sodium Chloride 125 ml @ 5 mls/hr CONT PRN 09/25/19 14:29 Lorazepam (Ativan Inj) 2 mg 1X ONCE 09/25/19 13:45 09/25/19 13:46 DC 09/25/19 14:07 2 MG Allergies Allergies Allergies Coded Allergies Type Severity Reaction Last Updated Verified No Known Drug Allergies 08/24/17 No Physical Exam Physical Exam Constitutional: Well developed, well nourished, no acute distress, non-toxic appearance. [] HENT: Normocephalic, atraumatic, bilateral external ears normal, oropharynx moist, no oral exudates, nose normal. [] Eyes: PERRLA, EOMI, conjunctiva normal, no discharge. [] Neck: Normal range of motion, no tenderness, supple, no stridor. [] Cardiovascular:Heart rate regular rhythm, no murmur [] Lungs & Thorax: Bilateral breath sounds clear to auscultation [] Neurologic: Alert and oriented X 3, normal motor function, normal sensory f unction, no focal deficits noted. [] Psychologic: Affect normal, judgement normal, mood normal. [] Current Patient Data Vital Signs Vital Signs Date Time Temp Pulse Resp B/P (MAP) Pulse Ox O2 Delivery O2 Flow Rate FiO2 09/25/19 13:21 116 16 145/94 (111) 100 Room Air Lab Values Laboratory Tests Test 09/25/19 13:25 White Blood Count 3.6 x10^3/uL (4.0-11.0) L Red Blood Count 4.60 x10^6/uL (4.30-5.70) Hemoglobin 15.3 g/dL (13.0-17.5) Hematocrit 45.7 % (39.0-53.0) Mean Corpuscular Volume 99 fL (79-100) Mean Corpuscular Hemoglobin 33 pg (25-35) Mean Corpuscular Hemoglobin Concent 34 g/dL (31-37) Red Cell Distribution Width 13.3 % (11.5-14.5) Platelet Count 251 x10^3/uL (140-400) Neutrophils (%) (Auto) 42 % (31-73) Lymphocytes (%) (Auto) 37 % (24-48) Monocytes (%) (Auto) 18 % (0-9) H Eosinophils (%) (Auto) 2 % (0-3) Basophils (%) (Auto) 1 % (0-3) Neutrophils # (Auto) 1.5 x10^3/uL (1.8-7.7) L Lymphocytes # (Auto) 1.3 x10^3/uL (1.0-4.8) Monocytes # (Auto) 0.7 x10^3/uL (0.0-1.1) Eosinophils # (Auto) 0.1 x10^3/uL (0.0-0.7) Basophils # (Auto) 0.0 x10^3/uL (0.0-0.2) Segmented Neutrophils % 41 % (35-66) Band Neutrophils % 7 % (0-9) Lymphocytes % 32 % (24-48) Atypical Lymphocytes % (Manual) 7 % (0-0) H Monocytes % 12 % (0-10) H Basophils % 1 % (0-3) Platelet Estimate Adequate (ADEQUATE) Prothrombin Time 13.1 SEC (11.7-14.0) Prothrombin Time INR 1.0 (0.8-1.1) Activated Partial Thromboplast Time 29 SEC (24-38) D-Dimer (Tiffany) < 0.27 ug/mlFEU Sodium Level 145 mmol/L (136-145) Potassium Level 4.6 mmol/L (3.5-5.1) Chloride Level 107 mmol/L (98-107) Carbon Dioxide Level 31 mmol/L (21-32) Anion Gap 7 (6-14) Blood Urea Nitrogen 7 mg/dL (8-26) L Creatinine 1.0 mg/dL (0.7-1.3) Estimated GFR (Cockcroft-Gault) 105.5 BUN/Creatinine Ratio 7 (6-20) Glucose Level 65 mg/dL (70-99) L Calcium Level 8.5 mg/dL (8.5-10.1) Magnesium Level 2.2 mg/dL (1.8-2.4) Total Bilirubin 0.2 mg/dL (0.2-1.0) Aspartate Amino Transferase (AST) 20 U/L (15-37) Alanine Aminotransferase (ALT) 24 U/L (16-63) Alkaline Phosphatase 82 U/L (46-116) Troponin I Quantitative < 0.017 ng/mL (0.000-0.055) Total Protein 5.6 g/dL (6.4-8.2) L Albumin 3.2 g/dL (3.4-5.0) L Albumin/Globulin Ratio 1.3 (1.0-1.7) Ethyl Alcohol Level < 10 mg/dL (0-10) Laboratory Tests 09/25/19 13:25 Laboratory Tests 09/25/19 13:25 EKG EKG EKG intepreted by Dr. César Pedroza with rate of 116.[] Radiology/Procedures Radiology/Procedures [] Course & Med Decision Making Course & Med Decision Making Pertinent Labs and Imaging studies reviewed. (See chart for details) Patient presents the emergency department for palpitations and started an hour ago, will get EKG, labs, will give fluids and tox screen. EKG shows new onset A. fib. Will start on a dilt drip and give a bolus. Will consult cardiology. Labs are unremarkable for acute changes. Discussed with cardiology and Dr. Weinberg who will admit to the hospital. Dragon Disclaimer Dragon Disclaimer This electronic medical record was generated, in whole or in part, using a voice recognition dictation system. Departure Departure Impression: Primary Impression: New onset atrial fibrillation Disposition: ADMITTED INPATIENT Admitting Physician: ANNEL Condition: STABLE Referrals: NO PCP (PCP) RICK KAPLAN APRN Sep 25, 2019 13:42
[2019-09-25 13:53] LABS: BASO % 1 % (0-3); EOS # 0.1 x10^3/uL (0.0-0.7); EOS % 2 % (0-3); HEMATOCRIT 45.7 % (39.0-53.0); HEMOGLOBIN 15.3 g/dL (13.0-17.5); LYMPH # 1.3 x10^3/uL (1.0-4.8); LYMPH % 37 % (24-48); MEAN CORPUSCULAR HEMOGLOBIN 33 pg (25-35); MEAN CORPUSCULAR HGB CONC 34 g/dL (31-37); MEAN CORPUSCULAR VOLUME 99 fL (79-100); MONO # 0.7 x10^3/uL (0.0-1.1); MONO % 18 % (0-9); NEUT # 1.5 x10^3/uL (1.8-7.7); NEUT % 42 % (31-73); PLATELET COUNT 251 x10^3/uL (140-400); RED CELL DISTRIBUTION WIDTH 13.3 % (11.5-14.5); WHITE BLOOD COUNT 3.6 x10^3/uL (4.0-11.0)
[2019-09-25 13:58] LABS: CALCIUM 8.5 mg/dL (8.5-10.1); GFR 105.5; POTASSIUM 4.6 mmol/L (3.5-5.1)
[2019-09-25 13:59] LABS: PARTIAL THROMBOPLASTIN TIME 29 SEC (24-38); PROTHROMBIN TIME PATIENT 13.1 SEC (11.7-14.0)
[2019-09-25 14:04] LABS: ALBUMIN 3.2 g/dL (3.4-5.0); ALBUMIN/GLOBULIN RATIO 1.3 (1.0-1.7); MAGNESIUM 2.2 mg/dL (1.8-2.4); TOTAL BILIRUBIN 0.2 mg/dL (0.2-1.0); TOTAL PROTEIN 5.6 g/dL (6.4-8.2)
[2019-09-25 14:07] LABS: D-DIMER < 0.27 ug/mlFEU (0.00-0.50)
--- NOTE | 2019-09-25 14:13 | RAD ---
INDICATION: Palpitations COMPARISON: None. FINDINGS: 2 view of chest obtained. No focal airspace consolidation. Cardiomediastinal contour unremarkable. No acute osseous abnormality. IMPRESSION: * No focal airspace consolidation or edema. Electronically signed by: Peter Wilkinson MD (09/25/2019 2:10 PM) [id number]
[2019-09-25 14:28] LABS: % ATYL 7 % (0-0); % BANDS 7 % (0-9); % BASOS 1 % (0-3); % LYMPHS 32 % (24-48); % MONOS 12 % (0-10); % SEGS 41 % (35-66); PLT ESTIMATE ADEQUATE (ADEQUATE)
[2019-09-25] MEDS ORDERED: dilTIAZem INJ 125 MG in IV NORMAL SALINE 100ML 100 ML IV PRN (14:29)
[2019-09-25] MEDS ORDERED: dilTIAZem IV PUSH 25 MG/5 ML VIAL IVP STA (14:29)
[2019-09-25 14:38] LABS: BILIRUBIN,URINE NEGATIVE (NEG); CLARITY,URINE CLEAR; COLOR,URINE YELLOW; NITRITE,URINE NEGATIVE (NEG); PH,URINE 8.5 (<5.0-8.0); PROTEIN,URINE NEGATIVE (NEG-TRACE); UROBILINOGEN,URINE 0.2 mg/dL (0.2 mg/dL)
[2019-09-25 14:46] LABS: BARBITURATES NEG (NEG); BENZODIAZEPINES NEG (NEG); CANNABINOIDS POS (NEG); COCAINE NEG (NEG); METHADONE NEG (NEG); OPIATES NEG (NEG); PHENCYCLIDINE NEG (NEG)
[2019-09-25 14:48] LABS: BACTERIA,URINE 0 /HPF (0-FEW); RBC,URINE 0 /HPF (0-2); SQUAMOUS EPITHELIAL CELL,UR OCC /LPF; WBC,URINE RARE /HPF (0-4)
[2019-09-25 14:54] LABS: AMPHETAMINE/METHAMPHETAMINE NEG (NEG)
[2019-09-25] MEDS ORDERED: ONDANSETRON PF 4 MG/2 ML VIAL. IV PRN (15:00)
[2019-09-25] MEDS ORDERED: ONDANSETRON ODT 4 MG TAB.RAPDIS. PO PRN (16:15)
[2019-09-25 16:59] VITALS: BP 119/84
[2019-09-25] MEDS ORDERED: DIPHENOXYLATE/ATROPINE TABLET. PO SCH (17:00)
[2019-09-25] MEDS: AMOXICILLIN/K CLAV 875/125MG TABLET. PO SCH ×2 (17:45→20:27)
--- NOTE | 2019-09-25 17:58 | HP ---
ADMIT DATE: 09/25/2019 CHIEF COMPLAINT: Palpitations. HISTORY OF PRESENT ILLNESS: The patient is a pleasant young -[place] male who is pretty healthy. He does have some anxiety and GERD and alcohol abuse. Today, presented with some palpitations, has been occurring for several days intermittently. He had an episode last weekend as well. It went away after he burped. While in the ER, we noticed that he is in AFib with RVR. I discussed the case with ER physician. We are going to admit the patient, put him on IV Cardizem and consult Cardiology. PAST MEDICAL HISTORY: Anxiety, GERD, alcohol abuse, tobacco abuse, pneumothorax and marijuana use. ALLERGIES: None. FAMILY HISTORY: Diabetes. SOCIAL HISTORY: He drinks and smokes marijuana, but I do not think he uses any heavy drugs. 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 He has a fiancee. She is here and seems to be good support for him. MEDICATIONS: Reviewed, please refer to the MRAD. REVIEW OF SYSTEMS: GENERAL: No history of weight change, weakness or fevers. SKIN: No bruising, hair changes or rashes. EYES: No blurred, double or loss of vision. NOSE AND THROAT: No history of nosebleeds, hoarseness or sore throat. HEART: Frequent palpitations. LUNGS: Denies cough, hemoptysis, wheezing or shortness of breath. GASTROINTESTINAL: Denies changes in appetite, nausea, vomiting, diarrhea or constipation. GENITOURINARY: No history of frequency, urgency, hesitancy or nocturia. NEUROLOGIC: Denies history of numbness, tingling, tremor or weakness. PSYCHIATRIC: No history of panic, anxiety or depression. ENDOCRINE: No history of heat or cold intolerance, polyuria or polydipsia. EXTREMITIES: Denies muscle weakness, joint pain, pain on walking or stiffness. PHYSICAL EXAMINATION: VITALS: Within normal limits and are stable. GENERAL: No apparent distress. Alert and oriented. HEENT: Normal cephalic atraumatic, external auditory canals are patent EYES: Extraocular muscles are intact, pupils are equally round and reactive to light and accommodation MUSKULOSKELETAL: Well developed, well nourished, good range of motion ENDOCRINE: No thyromegaly was palpated LYMPHATICS: No cervical chain or axillary nodes were noted HEMATOPOIETIC: No bruising NECK: Supple, no JVD, no thyromegaly was noted. LUNGS: Clear to auscultation in all lung friedman without rhonchi or wheezing. HEART: He has irregular S1, S2 at 81 beats per minute. He is on a Cardizem drip. ABDOMEN: Soft, nontender. Positive bowel sounds no organomegaly, normal bowel sounds. EXTREMITIES: Without any cyanosis, clubbing, or edema. Pedal pulses intact, Homans sign is negative. NEUROLOGIC: Normal speech, normal tone. A & O x3, moves all extremities, no obvious focal deficits. PSYCHIATRIC: Normal affect, normal mood. Stable. SKIN: No ulcerations or rashes, good skin turgor, no jaundice. VASCULAR: Good capillary refill, neurovascular bundle appears to be intact. LABORATORY DATA: White count is 3.6. Electrolytes are normal. Troponin is 0. Urinalysis negative. Drug screen positive for cannabinoids, which he admits he smokes. INR is 1. EKG shows AFib with RVR. Chest x-ray shows no acute disease. ASSESSMENT AND PLAN: Atrial fibrillation with rapid ventricular response. The patient is being admitted. We will consult Cardiology, serial enzymes, serial EKGs, cardiac monitoring, home meds, deep venous thrombosis prophylaxis. Full code. LESLY WALKER DO DR: MARKO/alireza JOB#: [id number] / [id number]
[2019-09-25] MEDS ORDERED: FLU VAX QS 2019-20 (36MOS+)/PF 0.5 ML SYRINGE. VAX IM ONE (18:15)
--- NOTE | 2019-09-25 18:39 | NUR ---
pt admiited to unit and states that he takes no daily medications besides otc allergy meds and nyquil. Prt states he drinks and smokes every other day however requests information on smoking cessation.
[2019-09-25 19:00] VITALS: BP 125/88
[2019-09-25] MEDS ORDERED: HYOSCYAMINE 0.125 MG TAB.RAPDIS PO SCH (21:00)
[2019-09-25 22:37] VITALS: BP 119/73
[2019-09-26 02:44] VITALS: BP 118/75
--- NOTE | 2019-09-26 03:50 | EKG ---
[facility] [address] [place] [address] Test Date: 2019-09-25 Test Time: 13:21:05 Pat Name: GRAY MENARD Department: Room: Gender: M Php Architect: : [id number] Requested By: RICK KAPLAN Order Number: [id number] Reading MD: Measurements Intervals [place] Rate: 116 P: CA: QRS: 28 QRSD: 78 T: 62 QT: 306 QTc: 431 Interpretive Statements IRREGULAR RHYTHM, NO P-WAVE FOUND NO SPECIFIC ECG ABNORMALITIES RI6.01 No previous ECG available for comparison
[2019-09-26 07:57] VITALS: BP 110/58
--- NOTE | 2019-09-26 08:44 | PDOC ---
PROGRESS NOTES Chief Complaint Chief Complaint A/P: Afib with RVR - improved with cardizem GTT Anxiety, GERD, alcohol abuse, tobacco abuse, pneumothorax, and marijuana use History of Present Illness History of Present Illness Mr Hall is a 29yo M w/ PMHx Anxiety, GERD, alcohol abuse, tobacco abuse, pneumothorax, and marijuana use who p/w palpitations, found in afib with RVR, admitted for further care. Converted to SR overnight with cardizem GTT. He feels much better. No CP or SOB. He is going to quit smoking and cut back on his drinking. 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 Vitals Vitals Vital Signs Date Time Temp Pulse Resp B/P (MAP) Pulse Ox O2 Delivery O2 Flow Rate FiO2 09/26/19 02:44 98.3 67 16 118/75 (89) 99 Room Air 98.3 Physical Exam General: Alert, Oriented X3, Cooperative Lungs: Clear Labs LABS Laboratory Tests Test 09/25/19 13:25 09/25/19 14:10 White Blood Count 3.6 x10^3/uL (4.0-11.0) Red Blood Count 4.60 x10^6/uL (4.30-5.70) Hemoglobin 15.3 g/dL (13.0-17.5) Hematocrit 45.7 % (39.0-53.0) Mean Corpuscular Volume 99 fL (79-100) Mean Corpuscular Hemoglobin 33 pg (25-35) Mean Corpuscular Hemoglobin Concent 34 g/dL (31-37) Red Cell Distribution Width 13.3 % (11.5-14.5) Platelet Count 251 x10^3/uL (140-400) Neutrophils (%) (Auto) 42 % (31-73) Lymphocytes (%) (Auto) 37 % (24-48) Monocytes (%) (Auto) 18 % (0-9) Eosinophils (%) (Auto) 2 % (0-3) Basophils (%) (Auto) 1 % (0-3) Neutrophils # (Auto) 1.5 x10^3/uL (1.8-7.7) Lymphocytes # (Auto) 1.3 x10^3/uL (1.0-4.8) Monocytes # (Auto) 0.7 x10^3/uL (0.0-1.1) Eosinophils # (Auto) 0.1 x10^3/uL (0.0-0.7) Basophils # (Auto) 0.0 x10^3/uL (0.0-0.2) Segmented Neutrophils % 41 % (35-66) Band Neutrophils % 7 % (0-9) Lymphocytes % 32 % (24-48) Atypical Lymphocytes % (Manual) 7 % (0-0) Monocytes % 12 % (0-10) Basophils % 1 % (0-3) Platelet Estimate Adequate (ADEQUATE) Prothrombin Time 13.1 SEC (11.7-14.0) Prothromb Time International Ratio 1.0 (0.8-1.1) Activated Partial Thromboplast Time 29 SEC (24-38) D-Dimer (Tiffany) < 0.27 ug/mlFEU Sodium Level 145 mmol/L (136-145) Potassium Level 4.6 mmol/L (3.5-5.1) Chloride Level 107 mmol/L (98-107) Carbon Dioxide Level 31 mmol/L (21-32) Anion Gap 7 (6-14) Blood Urea Nitrogen 7 mg/dL (8-26) Creatinine 1.0 mg/dL (0.7-1.3) Estimated GFR (Cockcroft-Gault) 105.5 BUN/Creatinine Ratio 7 (6-20) Glucose Level 65 mg/dL (70-99) Calcium Level 8.5 mg/dL (8.5-10.1) Magnesium Level 2.2 mg/dL (1.8-2.4) Total Bilirubin 0.2 mg/dL (0.2-1.0) Aspartate Amino Transf (AST/SGOT) 20 U/L (15-37) Alanine Aminotransferase (ALT/SGPT) 24 U/L (16-63) Alkaline Phosphatase 82 U/L (46-116) Troponin I Quantitative < 0.017 ng/mL (0.000-0.055) Total Protein 5.6 g/dL (6.4-8.2) Albumin 3.2 g/dL (3.4-5.0) Albumin/Globulin Ratio 1.3 (1.0-1.7) Procalcitonin < 0.10 ng/mL (0.00-0.10) Ethyl Alcohol Level < 10 mg/dL (0-10) Urine Collection Type Unknown Urine Color Yellow Urine Clarity Clear Urine pH 8.5 (<5.0-8.0) Urine Specific [place] 1.010 (1.000-1.030) Urine Protein Negative mg/dL (NEG-TRACE) Urine Glucose (UA) Negative mg/dL (NEG) Urine Ketones (Stick) Negative mg/dL (NEG) Urine Blood Negative (NEG) Urine Nitrite Negative (NEG) Urine Bilirubin Negative (NEG) Urine Urobilinogen Dipstick 0.2 mg/dL (0.2 mg/dL) Urine Leukocyte Esterase Negative (NEG) Urine RBC 0 /HPF (0-2) Urine WBC Rare /HPF (0-4) Urine Squamous Epithelial Cells Occ /LPF Urine Bacteria 0 /HPF (0-FEW) Urine Mucus Slight /LPF Urine Opiates Screen Neg (NEG) Urine Methadone Screen Neg (NEG) Urine Barbiturates Neg (NEG) Urine Phencyclidine Screen Neg (NEG) Urine Amphetamine/Methamphetamine Neg (NEG) Urine Benzodiazepines Screen Neg (NEG) Urine Cocaine Screen Neg (NEG) Urine Cannabinoids Screen Pos (NEG) Urine Ethyl Alcohol Neg (NEG) Assessment and Plan Assessmemt and Plan Problems Medical Problems: (1) New onset atrial fibrillation Status: Acute Comment Review of Relevant I have reviewed the following items jeni (where applicable) has been applied. Labs Laboratory Tests Test 09/25/19 13:25 09/25/19 14:10 White Blood Count 3.6 x10^3/uL (4.0-11.0) Red Blood Count 4.60 x10^6/uL (4.30-5.70) Hemoglobin 15.3 g/dL (13.0-17.5) Hematocrit 45.7 % (39.0-53.0) Mean Corpuscular Volume 99 fL (79-100) Mean Corpuscular Hemoglobin 33 pg (25-35) Mean Corpuscular Hemoglobin Concent 34 g/dL (31-37) Red Cell Distribution Width 13.3 % (11.5-14.5) Platelet Count 251 x10^3/uL (140-400) Neutrophils (%) (Auto) 42 % (31-73) Lymphocytes (%) (Auto) 37 % (24-48) Monocytes (%) (Auto) 18 % (0-9) Eosinophils (%) (Auto) 2 % (0-3) Basophils (%) (Auto) 1 % (0-3) Neutrophils # (Auto) 1.5 x10^3/uL (1.8-7.7) Lymphocytes # (Auto) 1.3 x10^3/uL (1.0-4.8) Monocytes # (Auto) 0.7 x10^3/uL (0.0-1.1) Eosinophils # (Auto) 0.1 x10^3/uL (0.0-0.7) Basophils # (Auto) 0.0 x10^3/uL (0.0-0.2) Segmented Neutrophils % 41 % (35-66) Band Neutrophils % 7 % (0-9) Lymphocytes % 32 % (24-48) Atypical Lymphocytes % (Manual) 7 % (0-0) Monocytes % 12 % (0-10) Basophils % 1 % (0-3) Platelet Estimate Adequate (ADEQUATE) Prothrombin Time 13.1 SEC (11.7-14.0) Prothromb Time International Ratio 1.0 (0.8-1.1) Activated Partial Thromboplast Time 29 SEC (24-38) D-Dimer (Tiffany) < 0.27 ug/mlFEU Sodium Level 145 mmol/L (136-145) Potassium Level 4.6 mmol/L (3.5-5.1) Chloride Level 107 mmol/L (98-107) Carbon Dioxide Level 31 mmol/L (21-32) Anion Gap 7 (6-14) Blood Urea Nitrogen 7 mg/dL (8-26) Creatinine 1.0 mg/dL (0.7-1.3) Estimated GFR (Cockcroft-Gault) 105.5 BUN/Creatinine Ratio 7 (6-20) Glucose Level 65 mg/dL (70-99) Calcium Level 8.5 mg/dL (8.5-10.1) Magnesium Level 2.2 mg/dL (1.8-2.4) Total Bilirubin 0.2 mg/dL (0.2-1.0) Aspartate Amino Transf (AST/SGOT) 20 U/L (15-37) Alanine Aminotransferase (ALT/SGPT) 24 U/L (16-63) Alkaline Phosphatase 82 U/L (46-116) Troponin I Quantitative < 0.017 ng/mL (0.000-0.055) Total Protein 5.6 g/dL (6.4-8.2) Albumin 3.2 g/dL (3.4-5.0) Albumin/Globulin Ratio 1.3 (1.0-1.7) Procalcitonin < 0.10 ng/mL (0.00-0.10) Ethyl Alcohol Level < 10 mg/dL (0-10) Urine Collection Type Unknown Urine Color Yellow Urine Clarity Clear Urine pH 8.5 (<5.0-8.0) Urine Specific [place] 1.010 (1.000-1.030) Urine Protein Negative mg/dL (NEG-TRACE) Urine Glucose (UA) Negative mg/dL (NEG) Urine Ketones (Stick) Negative mg/dL (NEG) Urine Blood Negative (NEG) Urine Nitrite Negative (NEG) Urine Bilirubin Negative (NEG) Urine Urobilinogen Dipstick 0.2 mg/dL (0.2 mg/dL) Urine Leukocyte Esterase Negative (NEG) Urine RBC 0 /HPF (0-2) Urine WBC Rare /HPF (0-4) Urine Squamous Epithelial Cells Occ /LPF Urine Bacteria 0 /HPF (0-FEW) Urine Mucus Slight /LPF Urine Opiates Screen Neg (NEG) Urine Methadone Screen Neg (NEG) Urine Barbiturates Neg (NEG) Urine Phencyclidine Screen Neg (NEG) Urine Amphetamine/Methamphetamine Neg (NEG) Urine Benzodiazepines Screen Neg (NEG) Urine Cocaine Screen Neg (NEG) Urine Cannabinoids Screen Pos (NEG) Urine Ethyl Alcohol Neg (NEG) Laboratory Tests Test 09/25/19 13:25 09/25/19 14:10 White Blood Count 3.6 x10^3/uL (4.0-11.0) Red Blood Count 4.60 x10^6/uL (4.30-5.70) Hemoglobin 15.3 g/dL (13.0-17.5) Hematocrit 45.7 % (39.0-53.0) Mean Corpuscular Volume 99 fL (79-100) Mean Corpuscular Hemoglobin 33 pg (25-35) Mean Corpuscular Hemoglobin Concent 34 g/dL (31-37) Red Cell Distribution Width 13.3 % (11.5-14.5) Platelet Count 251 x10^3/uL (140-400) Neutrophils (%) (Auto) 42 % (31-73) Lymphocytes (%) (Auto) 37 % (24-48) Monocytes (%) (Auto) 18 % (0-9) Eosinophils (%) (Auto) 2 % (0-3) Basophils (%) (Auto) 1 % (0-3) Neutrophils # (Auto) 1.5 x10^3/uL (1.8-7.7) Lymphocytes # (Auto) 1.3 x10^3/uL (1.0-4.8) Monocytes # (Auto) 0.7 x10^3/uL (0.0-1.1) Eosinophils # (Auto) 0.1 x10^3/uL (0.0-0.7) Basophils # (Auto) 0.0 x10^3/uL (0.0-0.2) Segmented Neutrophils % 41 % (35-66) Band Neutrophils % 7 % (0-9) Lymphocytes % 32 % (24-48) Atypical Lymphocytes % (Manual) 7 % (0-0) Monocytes % 12 % (0-10) Basophils % 1 % (0-3) Platelet Estimate Adequate (ADEQUATE) Prothrombin Time 13.1 SEC (11.7-14.0) Prothromb Time International Ratio 1.0 (0.8-1.1) Activated Partial Thromboplast Time 29 SEC (24-38) D-Dimer (Tiffany) < 0.27 ug/mlFEU Sodium Level 145 mmol/L (136-145) Potassium Level 4.6 mmol/L (3.5-5.1) Chloride Level 107 mmol/L (98-107) Carbon Dioxide Level 31 mmol/L (21-32) Anion Gap 7 (6-14) Blood Urea Nitrogen 7 mg/dL (8-26) Creatinine 1.0 mg/dL (0.7-1.3) Estimated GFR (Cockcroft-Gault) 105.5 BUN/Creatinine Ratio 7 (6-20) Glucose Level 65 mg/dL (70-99) Calcium Level 8.5 mg/dL (8.5-10.1) Magnesium Level 2.2 mg/dL (1.8-2.4) Total Bilirubin 0.2 mg/dL (0.2-1.0) Aspartate Amino Transf (AST/SGOT) 20 U/L (15-37) Alanine Aminotransferase (ALT/SGPT) 24 U/L (16-63) Alkaline Phosphatase 82 U/L (46-116) Troponin I Quantitative < 0.017 ng/mL (0.000-0.055) Total Protein 5.6 g/dL (6.4-8.2) Albumin 3.2 g/dL (3.4-5.0) Albumin/Globulin Ratio 1.3 (1.0-1.7) Procalcitonin < 0.10 ng/mL (0.00-0.10) Ethyl Alcohol Level < 10 mg/dL (0-10) Urine Collection Type Unknown Urine Color Yellow Urine Clarity Clear Urine pH 8.5 (<5.0-8.0) Urine Specific [place] 1.010 (1.000-1.030) Urine Protein Negative mg/dL (NEG-TRACE) Urine Glucose (UA) Negative mg/dL (NEG) Urine Ketones (Stick) Negative mg/dL (NEG) Urine Blood Negative (NEG) Urine Nitrite Negative (NEG) Urine Bilirubin Negative (NEG) Urine Urobilinogen Dipstick 0.2 mg/dL (0.2 mg/dL) Urine Leukocyte Esterase Negative (NEG) Urine RBC 0 /HPF (0-2) Urine WBC Rare /HPF (0-4) Urine Squamous Epithelial Cells Occ /LPF Urine Bacteria 0 /HPF (0-FEW) Urine Mucus Slight /LPF Urine Opiates Screen Neg (NEG) Urine Methadone Screen Neg (NEG) Urine Barbiturates Neg (NEG) Urine Phencyclidine Screen Neg (NEG) Urine Amphetamine/Methamphetamine Neg (NEG) Urine Benzodiazepines Screen Neg (NEG) Urine Cocaine Screen Neg (NEG) Urine Cannabinoids Screen Pos (NEG) Urine Ethyl Alcohol Neg (NEG) Medications Current Medications Lorazepam (Ativan Inj) 2 mg 1X ONCE IVP Last administered on 09/25/19at 14:07; Start 09/25/19 at 13:45; Stop 09/25/19 at 13:46; Status DC Diltiazem HCl (Cardizem Iv Push) 10 mg 1X STAT IVP Last administered on 09/25/19at 15:02; Start 09/25/19 at 14:29; Stop 09/25/19 at 14:32; Status DC Diltiazem HCl 125 mg/Sodium Chloride 125 ml @ 5 mls/hr CONT PRN IV SEE I/O RECORD Last administered on 09/25/19at 15:03; Start 09/25/19 at 14:29 Ondansetron HCl (Zofran) 4 mg PRN Q8HRS PRN IV NAUSEA/VOMITING; Start 09/25/19 at 15:00; Stop 09/26/19 at 14:59 Amoxicillin/ Clavulanate Potassium (Augmentin 875/ 125mg) 1 tab BIDWMEALS PO Last administered on 09/25/19at 20:27; Start 09/25/19 at 17:00 Diphenoxylate HCl/ Atropine (Lomotil) 1 tab QID PO ; Start 09/25/19 at 17:00; Status UNV Hyoscyamine (Anaspaz) 0.125 mg TID PO ; Start 09/25/19 at 21:00; Status UNV Ondansetron HCl (Zofran Odt) 4 mg BID PRN PO NAUSEA/VOMITING; Start 09/25/19 at 16:15; Status UNV Sertraline HCl (Zoloft) 25 mg DAILY PO ; Start 09/26/19 at 09:00; Status UNV Non-Formulary Medication (Ranitidine Hcl (Zantac)) 300 mg DAILY PO ; Start 09/26/19 at 09:00; Status UNV Influenza Virus Vaccine Quadrival (Afluria Quad 2019-20 (3yr Up) Syringe) 0.5 ml ONCE ONCE VAX IM Last administered on 09/25/19at 20:31; Start 09/25/19 at 18:15; Stop 09/25/19 at 18:16; Status DC Active Scripts Active Augmentin 875-125 Tablet (Amoxicillin/Potassium Clav) 1 Each Tablet 1 Tab PO BID Lomotil Tablet (Diphenoxylate Hcl/Atropine) 1 Each Tablet 1 Tab PO QID Zofran Odt (Ondansetron) 4 Mg Tab.rapdis 4 Mg PO BID PRN 5 Days Anaspaz (Hyoscyamine Sulfate) 0.125 Mg Tab.rapdis 0.125 Mg PO TID 5 Days Reported Zoloft (Sertraline Hcl) 25 Mg Tablet 1 Tab PO DAILY Zantac (Ranitidine Hcl) 300 Mg Tablet 300 Mg PO DAILY Vitals/I & O Vital Sign - Last 24 Hours 09/25/19 09/25/19 09/25/19 09/25/19 13:19 13:21 13:34 14:04 Pulse 103 116 116 108 Resp 16 B/P (MAP) 145/94 (111) Pulse Ox 99 100 100 99 O2 Delivery Room Air 09/25/19 09/25/19 09/25/19 09/25/19 15:02 16:59 18:22 19:00 Temp 98.3 98.3 98.3 98.3 Pulse 110 89 84 Resp 18 B/P (MAP) 117/83 119/84 (96) 125/88 (100) Pulse Ox 99 O2 Delivery Room Air Room Air Room Air 09/25/19 09/25/19 09/26/19 19:30 22:37 02:44 Temp 98.1 98.3 98.1 98.3 Pulse 78 67 Resp 16 16 B/P (MAP) 119/73 (88) 118/75 (89) Pulse Ox 98 99 O2 Delivery Room Air Room Air Room Air Intake and Output 09/25/19 09/25/19 09/26/19 15:00 23:00 07:00 Intake Total 400 ml 300 ml Output Total 350 ml 700 ml Balance 50 ml -400 ml YESENIA RAMIREZ MD Sep 26, 2019 08:44
[2019-09-26] MEDS ORDERED: SERTRALINE 25 MG TABLET. PO SCH (09:00)
[2019-09-26] MEDS ORDERED: RANITIDINE HCL 300 MG PO SCH (09:00)
[2019-09-26] MEDS ORDERED: LIDO:MAALOX 1:1 20 ML SINGLE DOSE. PO PRN (11:00)
[2019-09-26 11:17] VITALS: BP 119/68
[2019-09-26] MEDS ORDERED: DILT120C99 PO (14:11)
[2019-09-26 15:00] VITALS: BP 118/70
--- NOTE | 2019-09-26 15:37 | PDOC3 ---
Discharge Summary Visit Information Date of Admission: Sep 25, 2019 Date of Discharge: Sep 26, 2019 Admitting Diagnosis: Atrial fibrillation, new onset Final Diagnosis Problems Medical Problems: (1) New onset atrial fibrillation Status: Acute Brief Hospital Course Allergies Allergies Coded Allergies Type Severity Reaction Last Updated Verified No Known Drug Allergies 08/24/17 No Vital Signs Vital Signs Date Time Temp Pulse Resp B/P (MAP) Pulse Ox O2 Delivery O2 Flow Rate FiO2 09/26/19 11:20 92 119/68 09/26/19 11:17 97.9 24 100 Room Air 97.9 Lab Results Laboratory Tests Test 09/25/19 13:25 09/25/19 14:10 White Blood Count 3.6 x10^3/uL (4.0-11.0) Red Blood Count 4.60 x10^6/uL (4.30-5.70) Hemoglobin 15.3 g/dL (13.0-17.5) Hematocrit 45.7 % (39.0-53.0) Mean Corpuscular Volume 99 fL (79-100) Mean Corpuscular Hemoglobin 33 pg (25-35) Mean Corpuscular Hemoglobin Concent 34 g/dL (31-37) Red Cell Distribution Width 13.3 % (11.5-14.5) Platelet Count 251 x10^3/uL (140-400) Neutrophils (%) (Auto) 42 % (31-73) Lymphocytes (%) (Auto) 37 % (24-48) Monocytes (%) (Auto) 18 % (0-9) Eosinophils (%) (Auto) 2 % (0-3) Basophils (%) (Auto) 1 % (0-3) Neutrophils # (Auto) 1.5 x10^3/uL (1.8-7.7) Lymphocytes # (Auto) 1.3 x10^3/uL (1.0-4.8) Monocytes # (Auto) 0.7 x10^3/uL (0.0-1.1) Eosinophils # (Auto) 0.1 x10^3/uL (0.0-0.7) Basophils # (Auto) 0.0 x10^3/uL (0.0-0.2) Segmented Neutrophils % 41 % (35-66) Band Neutrophils % 7 % (0-9) Lymphocytes % 32 % (24-48) Atypical Lymphocytes % (Manual) 7 % (0-0) Monocytes % 12 % (0-10) Basophils % 1 % (0-3) Platelet Estimate Adequate (ADEQUATE) Prothrombin Time 13.1 SEC (11.7-14.0) Prothromb Time International Ratio 1.0 (0.8-1.1) Activated Partial Thromboplast Time 29 SEC (24-38) D-Dimer (Tiffany) < 0.27 ug/mlFEU Sodium Level 145 mmol/L (136-145) Potassium Level 4.6 mmol/L (3.5-5.1) Chloride Level 107 mmol/L (98-107) Carbon Dioxide Level 31 mmol/L (21-32) Anion Gap 7 (6-14) Blood Urea Nitrogen 7 mg/dL (8-26) Creatinine 1.0 mg/dL (0.7-1.3) Estimated GFR (Cockcroft-Gault) 105.5 BUN/Creatinine Ratio 7 (6-20) Glucose Level 65 mg/dL (70-99) Calcium Level 8.5 mg/dL (8.5-10.1) Magnesium Level 2.2 mg/dL (1.8-2.4) Total Bilirubin 0.2 mg/dL (0.2-1.0) Aspartate Amino Transf (AST/SGOT) 20 U/L (15-37) Alanine Aminotransferase (ALT/SGPT) 24 U/L (16-63) Alkaline Phosphatase 82 U/L (46-116) Troponin I Quantitative < 0.017 ng/mL (0.000-0.055) Total Protein 5.6 g/dL (6.4-8.2) Albumin 3.2 g/dL (3.4-5.0) Albumin/Globulin Ratio 1.3 (1.0-1.7) Procalcitonin < 0.10 ng/mL (0.00-0.10) Ethyl Alcohol Level < 10 mg/dL (0-10) Urine Collection Type Unknown Urine Color Yellow Urine Clarity Clear Urine pH 8.5 (<5.0-8.0) Urine Specific [place] 1.010 (1.000-1.030) Urine Protein Negative mg/dL (NEG-TRACE) Urine Glucose (UA) Negative mg/dL (NEG) Urine Ketones (Stick) Negative mg/dL (NEG) Urine Blood Negative (NEG) Urine Nitrite Negative (NEG) Urine Bilirubin Negative (NEG) Urine Urobilinogen Dipstick 0.2 mg/dL (0.2 mg/dL) Urine Leukocyte Esterase Negative (NEG) Urine RBC 0 /HPF (0-2) Urine WBC Rare /HPF (0-4) Urine Squamous Epithelial Cells Occ /LPF Urine Bacteria 0 /HPF (0-FEW) Urine Mucus Slight /LPF Urine Opiates Screen Neg (NEG) Urine Methadone Screen Neg (NEG) Urine Barbiturates Neg (NEG) Urine Phencyclidine Screen Neg (NEG) Urine Amphetamine/Methamphetamine Neg (NEG) Urine Benzodiazepines Screen Neg (NEG) Urine Cocaine Screen Neg (NEG) Urine Cannabinoids Screen Pos (NEG) Urine Ethyl Alcohol Neg (NEG) Brief Hospital Course Mr Hall is a 29yo M w/ PMHx Anxiety, GERD, alcohol abuse, tobacco abuse, pneumothorax, and marijuana use who p/w palpitations, found in afib with RVR, admitted for further care. Converted to SR overnight with cardizem GTT. He feels much better. No CP or SOB. He is going to quit smoking and cut back on his drinking. 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 Seen by cardiology in consultation, likely arrhythmia induced by ETOH, spontaneously converted after cardizem dosing. 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 Discharge Information Condition at Discharge: Improved Follow Up: Weeks Disposition/Orders: D/C to Home Scheduled Diltiazem Hcl (Diltiazem 24HR Cd) 120 Mg Cap.er.24h, 120 MG PO DAILY for Atrial fibrillation for 90 Days, #90 Ref 3 Prescribed by: YESENIA RAMIREZ MD on 09/26/19 1411 Ranitidine Hcl (Zantac) 300 Mg Tablet, 300 MG PO DAILY, (Reported) Entered as Reported by: Inderjit Viera on 4/18/18 1538 Last Action: Converted on 09/25/19 1615 by LESLY WALKER Sertraline Hcl (Zoloft) 25 Mg Tablet, 1 TAB PO DAILY, #30 Ref 2 (Reported) Entered as Reported by: Inderjit Viera on 10/23/171537 Last Action: Continued on 09/25/19 1615 by LESLY WALKER Discontinued Medications Amoxicillin/Potassium Clav (Augmentin 875-125 Tablet) 1 Each Tablet, 1 TAB PO BID, #14 Ref 0 Prescribed by: LAUREN KELLY APRN on 10/14/181 Last Action: Continued on 09/25/19 1615 by LESLY WALKER Diphenoxylate Hcl/Atropine (Lomotil Tablet) 1 Each Tablet, 1 TAB PO QID, #20 Prescribed by: AUGUSTO SINGH MD on 10/22/17 1006 Last Action: Continued on 09/25/19 161 by LESLY WALKER Hyoscyamine Sulfate (Anaspaz) 0.125 Mg Tab.rapdis, 0.125 MG PO TID for 5 Days, #15 Prescribed by: AUGUSTO SINGH MD on 10/22/17 1006 Last Action: Continued on 09/25/19 1615 by LESLY WALKER Ondansetron (Zofran Odt) 4 Mg Tab.rapdis, 4 MG PO BID PRN for NAUSEA/VOMITING for 5 Days, #10 Prescribed by: AUGUSTO SINGH MD on 10/22/17 1006 Last Action: Continued on 09/25/191614 by YESENIA GALVAN MD Sep 26, 2019 15:37
--- NOTE | 2019-09-26 16:05 | PDOC2 ---
CARDIOLOGY CONSULT NOTE CHEIF COMPLAINT: Racing heart HPI: Pleasant 29 y.o man presented with palpitations. had one episode last week and had recurrence again prior to admission. Denied any chest pain or dyspnea. No prior history of afib. w/u thus far with labs unremarkable. his EKg is now back to normal. He feels better. 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 FAMHX: No significant cardiac family history CURRENT MEDS: Current Medications Medications (Trade) Dose Ordered Sig/Cristian Route PRN Reason Start Time Stop Time Status Last Admin Dose Admin Amoxicillin/ Clavulanate Potassium (Augmentin 875/ 125mg) 1 tab BIDWMEALS PO 09/25/19 17:00 09/26/19 14:14 DC 09/25/19 20:27 Influenza Virus Vaccine Quadrival (Afluria Quad 2019- (3yr Up) Syringe) 0.5 ml ONCE ONCE VAX IM 09/25/19 18:15 09/25/19 18:16 DC 09/25/19 20:31 Multi-Ingredient Mouthwash/Gargle (Gi Cocktail) 20 ml PRN QID PRN PO CHEST PAIN 09/26/19 11:00 09/26/19 11:20 Diltiazem HCl (Cardizem 24hr Cd) 120 mg DAILY PO 09/26/19 11:00 09/26/19 11:20 ALLERGIES: Allergies Coded Allergies Type Severity Reaction Last Updated Verified No Known Drug Allergies 08/24/17 No ROS: negative unless otherwise noted. PHYSICAL EXAM: Vital Signs/I&O: Vital Signs Date Time Temp Pulse Resp B/P (MAP) Pulse Ox O2 Delivery O2 Flow Rate FiO2 09/26/19 15:00 98.5 97 18 118/70 (86) 100 Room Air 98.5 I & O 09/25/19 09/25/19 09/26/19 15:00 23:00 07:00 Intake Total 400 ml 300 ml Output Total 350 ml 700 ml Balance 50 ml -400 ml Physical Exam: GEN.: No apparent distress. Alert and oriented. HEENT: Head is normocephalic, atraumatic NECK: Supple. LUNGS: Clear to auscultation. HEART: RRR, S1, S2 present. Peripheral pulses intact ABDOMEN: Soft, nontender. Positive bowel sounds. EXTREMITIES: Without any cyanosis. NEUROLOGIC: Normal speech, normal tone PSYCHIATRIC: Normal affect, normal mood. SKIN: No ulcerations DIAGNOSTIC TESTING: EKG currently NSR Admission ekg with afib with rvr. no ischemia. labs unremarkable. ASSESSMENT: 1. new onset afib with RVR, likely due to alcohol and drug abuse. PLAN: 1. ok to dc on cardizem and will f/u with outpt echo and event monitoring with our office. Agree with daily asa and drug/alcohol cessation. Thanks AYLIN KOWALSKI MD Sep 26, 2019 16:05
--- NOTE | 2019-09-26 16:45 | NUR ---
Discharge Note: [facility] [address] Discharge instructions and discharge home medications reviewed with Patient and a copy given. All questions have been answered and understanding verbalized. The following instructions and handouts were given: discharge instructions, cardizem info, a fib info. Discontinued lines and drains: Peripheral IV intact. Patient discharged to Home or Self Care with Significant Other via [facility] at 1645.
[2019-09-26] MEDS ORDERED: LACTOBACILLUS RHAMNOSUS GG 1 CAPSULE. PO SCH (21:00)
== END 2019-09-26 16:45 | disposition home or self-care (01) | DRG 310 ==
LOC: ER 13:13 → 2 NORTH 14:40
PROVIDERS: ADMIT Internal Medicine; ATTEND Internal Medicine
DX: I48.91 Unspecified atrial fibrillation (principal); F41.9 Anxiety disorder, unspecified; K21.9 Gastro-esophageal reflux disease without esophagitis; F17.200 Nicotine dependence, unspecified, uncomplicated; F12.90 Cannabis use, unspecified, uncomplicated; F10.10 Alcohol abuse, uncomplicated; Z83.3 Family history of diabetes mellitus
CPT/HCPCS: 36415; 71046; 80053; 80307; 81001; 83735; 84145; 84484; 85007; 85025; 85379; 85610; 85730; 90471; 90686; 93005; 96365; 96366; 96374; 96375; 99285; 99406; G0480; J2060; J3490; G0378

== ENCOUNTER 2019-11-22 21:30 | Emergency (ER) | payer BC ==
[~2019-11-22] VITALS: Ht 177.8 cm; Wt 70.0 kg
[~2019-11-22 21:30] MED LIST changes: +DILT120C99 PO
[2019-11-22 23:13] LABS: BASO # 0.1 x10^3/uL (0.0-0.2); BASO % 1 % (0-3); EOS % 0 % (0-3); HEMATOCRIT 47.8 % (39.0-53.0); HEMOGLOBIN 16.1 g/dL (13.0-17.5); LYMPH # 0.9 x10^3/uL (1.0-4.8); LYMPH % 10 % (24-48); MEAN CORPUSCULAR HEMOGLOBIN 33 pg (25-35); MEAN CORPUSCULAR HGB CONC 34 g/dL (31-37); MEAN CORPUSCULAR VOLUME 98 fL (79-100); MONO # 0.6 x10^3/uL (0.0-1.1); MONO % 7 % (0-9); NEUT # 7.1 x10^3/uL (1.8-7.7); NEUT % 82 % (31-73); PLATELET COUNT 346 x10^3/uL (140-400); RED BLOOD COUNT 4.86 x10^6/uL (4.30-5.70); RED CELL DISTRIBUTION WIDTH 12.8 % (11.5-14.5); WHITE BLOOD COUNT 8.7 x10^3/uL (4.0-11.0)
[2019-11-22] MEDS ORDERED: ONDANSETRON PF 4 MG/2 ML VIAL. IVP ONE (23:15)
[2019-11-22] MEDS ORDERED: KETOROLAC 15 MG/ML VIAL. IVP ONE (23:15)
[2019-11-22] MEDS ORDERED: IV NORMAL SALINE 1000ML BAG 1,000 ML IV ONE ×2 (23:15)
[2019-11-22] MEDS ORDERED: FAMOTIDINE 20 MG/2 ML VIAL IVP ONE (23:15)
[2019-11-22 23:22] LABS: CREATININE 1.2 mg/dL (0.7-1.3); GFR 85.4; POTASSIUM 3.9 mmol/L (3.5-5.1)
[2019-11-22 23:27] LABS: ALBUMIN 4.6 g/dL (3.4-5.0); ALBUMIN/GLOBULIN RATIO 1.2 (1.0-1.7); TOTAL BILIRUBIN 0.3 mg/dL (0.2-1.0); TOTAL PROTEIN 8.3 g/dL (6.4-8.2)
[2019-11-22] MEDS ORDERED: IOHEXOL 300 MG/ML 100ML VIAL. IV ONE (23:30)
[2019-11-22] MEDS ORDERED: CONTRAST GIVEN. MC PRN (23:45)
--- NOTE | 2019-11-23 00:07 | RAD ---
CT scan of the abdomen and pelvis with contrast 11/22/2019 CLINICAL HISTORY: Abdominal pain. Nausea and vomiting. TECHNIQUE: After the intravenous administration of 75 cc of Omnipaque 300, contiguous, 5 mm axial sections were obtained through the abdomen and pelvis. One or more of the following individualized dose reduction techniques were utilized for this study: 1. Automated exposure control. 2. Adjustment of the mA and/or kV according to patient size. 3. Use of iterative reconstruction technique. FINDINGS: Comparison study is dated 05/30/2018. Images through the lung bases are within normal limits. The liver, spleen, pancreas, adrenal glands and kidneys are within normal limits. The abdominal aorta tapers normally. The gallbladder is slightly contracted. No free fluid or free air is seen within the abdomen. There is no evidence of bowel obstruction. The appendix is not visualized. No inflammatory changes are seen surrounding the cecum. Images through the pelvis demonstrate the urinary bladder distended with urine. No free fluid is seen. The osseous structures are grossly intact. IMPRESSION: No acute abnormality is seen. Electronically signed by: Konstantin Blair MD (11/23/2019 12:05 AM) [id number]
[2019-11-23] MEDS ORDERED: FAMO-63 PO (00:26)
[2019-11-23] MEDS ORDERED: HYOS0.1265 SL (00:26)
--- NOTE | 2019-11-23 00:26 | PHYS DOC ---
Past Medical History Past Medical History: Other Additional Past Medical Histor: DRUG ABUSE - MARIJUANA DAILY Past Surgical History: No Surgical History Smoking Status: Current Some Day Smoker Additional Information: CIGARS Alcohol Use: Occasionally Additional Information: TEQUILA Drug Use: Marijuana Social History Narrative: SMOKES MARIJUANA DAILY General Adult EDM: Chief Complaint: NAUSEA/VOMITING/DIARRHA HPI: HPI: Patient is a 29 year old [f__sex] who presents with [] Review of Systems: Review of Systems: Constitutional: Denies fever or chills. [] Eyes: Denies change in visual acuity. [] HENT: Denies nasal congestion or sore throat. [] Respiratory: Denies cough or shortness of breath. [] Cardiovascular: Denies chest pain or edema. [] GI: Denies abdominal pain, nausea, vomiting, bloody stools or diarrhea. [] : Denies dysuria. [] Musculoskeletal: Denies back pain or joint pain. [] Integument: Denies rash. [] Neurologic: Denies headache, focal weakness or sensory changes. [] Endocrine: Denies polyuria or polydipsia. [] Lymphatic: Denies swollen glands. [] Psychiatric: Denies depression or anxiety. [] Heart Score: Risk Factors: Risk Factors: DM, Current or recent (<one month) smoker, HTN, HLP, family history of CAD, obesity. Risk Scores: Score 0 - 3: 2.5% MACE over next 6 weeks - Discharge Home Score 4 - 6: 20.3% MACE over next 6 weeks - Admit for Clinical Observation Score 7 - 10: 72.7% MACE over next 6 weeks - Early Invasive Strategies Current Medications: Current Medications Medications (Trade) Dose Ordered Sig/Cristian Start Time Stop Time Status Last Admin Dose Admin Famotidine (Pepcid Vial) 20 mg 1X ONCE 11/22/19 23:15 11/22/19 23:16 DC 11/22/19 23:26 20 MG Info (CONTRAST GIVEN -- Rx MONITORING) 1 each PRN DAILY PRN 11/22/19 23:45 11/24/19 23:44 Iohexol (Omnipaque 300 Mg/ml) 75 ml 1X ONCE 11/22/19 23:30 11/22/19 23:31 DC 11/22/19 23:49 75 ML Ketorolac Tromethamine (Toradol 15mg Vial) 15 mg 1X ONCE 11/22/19 23:15 11/22/19 23:16 DC 11/22/19 23:26 15 MG Lorazepam (Ativan Inj) 1 mg 1X ONCE 11/23/19 00:15 11/23/19 00:16 DC 11/23/19 00:19 1 MG Ondansetron HCl (Zofran) 4 mg 1X ONCE 11/22/19 23:15 11/22/19 23:16 DC 11/22/19 23:26 4 MG Sodium Chloride 1,000 ml @ 1,000 mls/hr 1X ONCE 11/22/19 23:15 11/23/19 00:14 DC Allergies: Allergies: Allergies Coded Allergies Type Severity Reaction Last Updated Verified No Known Drug Allergies 08/24/17 No Physical Exam: PE: Constitutional: Well developed, well nourished, no acute distress, non-toxic appearance. [] HENT: Normocephalic, atraumatic, bilateral external ears normal, oropharynx moist, no oral exudates, nose normal. [] Eyes: PERRLA, EOMI, conjunctiva normal, no discharge. [] Neck: Normal range of motion, no tenderness, supple, no stridor. [] Cardiovascular:Heart rate regular rhythm, no murmur [] Lungs & Thorax: Bilateral breath sounds clear to auscultation [] Abdomen: Bowel sounds normal, soft, no tenderness, no masses, no pulsatile masses. [] Skin: Warm, dry, no erythema, no rash. [] Back: No tenderness, no CVA tenderness. [] Extremities: No tenderness, no cyanosis, no clubbing, ROM intact, no edema. [] Neurologic: Alert and oriented X 3, normal motor function, normal sensory function, no focal deficits noted. [] Psychologic: Affect normal, judgement normal, mood normal. [] Current Patient Data: Labs: Laboratory Tests Test 11/22/19 21:58 White Blood Count 8.7 x10^3/uL (4.0-11.0) Red Blood Count 4.86 x10^6/uL (4.30-5.70) Hemoglobin 16.1 g/dL (13.0-17.5) Hematocrit 47.8 % (39.0-53.0) Mean Corpuscular Volume 98 fL (79-100) Mean Corpuscular Hemoglobin 33 pg (25-35) Mean Corpuscular Hemoglobin Concent 34 g/dL (31-37) Red Cell Distribution Width 12.8 % (11.5-14.5) Platelet Count 346 x10^3/uL (140-400) Neutrophils (%) (Auto) 82 % (31-73) H Lymphocytes (%) (Auto) 10 % (24-48) L Monocytes (%) (Auto) 7 % (0-9) Eosinophils (%) (Auto) 0 % (0-3) Basophils (%) (Auto) 1 % (0-3) Neutrophils # (Auto) 7.1 x10^3/uL (1.8-7.7) Lymphocytes # (Auto) 0.9 x10^3/uL (1.0-4.8) L Monocytes # (Auto) 0.6 x10^3/uL (0.0-1.1) Eosinophils # (Auto) 0.0 x10^3/uL (0.0-0.7) Basophils # (Auto) 0.1 x10^3/uL (0.0-0.2) Sodium Level 140 mmol/L (136-145) Potassium Level 3.9 mmol/L (3.5-5.1) Chloride Level 100 mmol/L (98-107) Carbon Dioxide Level 21 mmol/L (21-32) Anion Gap 19 (6-14) H Blood Urea Nitrogen 15 mg/dL (8-26) Creatinine 1.2 mg/dL (0.7-1.3) Estimated GFR (Cockcroft-Gault) 85.4 BUN/Creatinine Ratio 13 (6-20) Glucose Level 123 mg/dL (70-99) H Calcium Level 10.0 mg/dL (8.5-10.1) Magnesium Level 2.0 mg/dL (1.8-2.4) Total Bilirubin 0.3 mg/dL (0.2-1.0) Aspartate Amino Transferase (AST) 24 U/L (15-37) Alanine Aminotransferase (ALT) 36 U/L (16-63) Alkaline Phosphatase 97 U/L (46-116) Total Protein 8.3 g/dL (6.4-8.2) H Albumin 4.6 g/dL (3.4-5.0) Albumin/Globulin Ratio 1.2 (1.0-1.7) Lipase 89 U/L (73-393) Ethyl Alcohol Level < 10 mg/dL (0-10) Laboratory Tests 11/22/19 21:58 Laboratory Tests 11/22/19 21:58 Vital Signs: Vital Signs Date Time Temp Pulse Resp B/P (MAP) Pulse Ox O2 Delivery O2 Flow Rate FiO2 11/22/19 21:44 98.7 97 16 145/87 (106) 100 Room Air 98.7 EKG: EKG: [] Radiology/Procedures: Radiology/Procedures: [] Course & Med Decision Making: Course & Med Decision Making Pertinent Labs and Imaging studies reviewed. (See chart for details) [] Dragon Disclaimer: Dragon Disclaimer: This electronic medical record was generated, in whole or in part, using a voice recognition dictation system. Departure Departure Impression: Primary Impression: Nausea vomiting and diarrhea Disposition: HOME, SELF-CARE Condition: STABLE Referrals: NO PCP (PCP) SUSANA BRENNAN MD Patient Instructions: Clear Liquid Diet, Rnqt-gv-Gasd, Diarrhea, Hxes-sn-Sekw, Nausea and Vomiting, Knnn-sl-Diyc Scripts Hyoscyamine Sulfate (LEVSIN-SL) 0.125 Mg Tab.subl 0.125 MG SL Q4-6HRS PRN for PAIN, #14 TAB Prov: RICK FLYNN DO 11/23/19 Famotidine (PEPCID) 20 Mg Tablet 20 MG PO BID, #14 TAB Prov: RICK FLYNN DO 11/23/19 RICK FLYNN DO November 23, 2019 00:26
[2019-11-23 01:00] VITALS: BP 150/62
[2019-11-23] MEDS ORDERED: IOHEXOL 300 MG/ML 100ML VIAL. ONE (05:46)
== END 2019-11-23 01:00 | disposition home or self-care (01) ==
LOC: ER 21:30
DX: R11.2 Nausea with vomiting, unspecified (principal); R19.7 Diarrhea, unspecified; F12.90 Cannabis use, unspecified, uncomplicated; F17.200 Nicotine dependence, unspecified, uncomplicated
CPT/HCPCS: 36415; 74177; 80053; 83690; 83735; 85025; 96361; 96374; 96375; 99285; G0480; J1885; J2060; J2405; J3490; J7030; Q9967

== ENCOUNTER → 2019-12-30 | Outpatient (CLI) | payer BC ==
[~2019-12-30] MED LIST changes: +FAMO-63 PO; +HYOS0.1265 SL
--- NOTE | 2019-12-30 08:41 | CARD ---
MR#: [id number] Date of Study: 12/30/2019 Ordering Physician: AYLIN KOWALSKI, Referring Physician: AYLIN KOWALSKI, Tech: Rosa Alexander [facility] APPROVED REPORT EXAM: Two-dimensional and M-mode echocardiogram with Doppler and color Doppler. Other Information Quality : Good INDICATION Atrial Fibrillation 2D DIMENSIONS RVDd2.9 (2.9-3.5cm)Left Atrium(2D)2.8 (1.6-4.0cm) IVSd0.8 (0.7-1.1cm)Aortic Root(2D)2.8 (2.0-3.7cm) LVDd4.2 (3.9-5.9cm)LVOT Diameter2.0 (1.8-2.4cm) PWd0.9 (0.7-1.1cm)LVDs3.1 (2.5-4.0cm) FS (%) 26.5 %SV42.1 ml LVEF(%)52.2 (>50%) Aortic Valve AoV Peak Tai.112.8cm/sAoV VTI21.5cm AO Peak GR.5.1mmHgLVOT Peak Tai.97.2cm/s AO Mean GR.3mmHgAVA (VMAX)2.69cm2 BEBE (VTI)2.60cm2 Mitral Valve MV E Mtpmlcnq04.9cm/sMV DECEL BBSE900kp MV A Vkurpeko62.8cm/sE/A Ratio1.8 Tricuspid Valve TR P. Neywifvv290az/sRAP GYJXQOLB9qyUy TR Peak Gr.70luLuJPZH95jyTn Pulmonary Vein S1 Gxncvymv16.1cm/sD2 Kfpoabcq38.3cm/s LEFT VENTRICLE The left ventricle is normal size. There is normal left ventricular wall thickness. The left ventricu lar systolic function is normal. The Ejection Fraction is 55-60%. There is normal LV segmental wall m otion. The left ventricular diastolic function and filling is normal for age. RIGHT VENTRICLE The right ventricle is normal size. The right ventricular systolic function is normal. ATRIA The left atrium size is normal. The right atrium size is normal. The interatrial septum is intact wit h no evidence for an atrial septal defect or patent foramen ovale as noted on 2-D or Doppler imaging. AORTIC VALVE The aortic valve is normal in structure and function. Doppler and Color Flow revealed no significant aortic regurgitation. There is no significant aortic valvular stenosis. MITRAL VALVE The mitral valve is normal in structure and function. There is no evidence of mitral valve prolapse. There is no mitral valve stenosis. Doppler and Color-flow revealed trace mitral regurgitation. TRICUSPID VALVE The tricuspid valve is normal in structure and function. Doppler and Color Flow revealed trace tricus pid regurgitation. The PA pressure was estimated at 23 mmHg. There is no tricuspid valve stenosis. PULMONIC VALVE The pulmonic valve is not well visualized. Doppler and Color Flow revealed no pulmonic valvular regur gitation. There is no pulmonic valvular stenosis. GREAT VESSELS The aortic root is normal in size. The ascending aorta is normal in size. The IVC is normal in size a nd collapses >50% with inspiration. PERICARDIAL EFFUSION There is no evidence of significant pericardial effusion. Critical Notification Critical Value: No <Conclusion> The left ventricular systolic function is normal. The Ejection Fraction is 55-60%. There is normal LV segmental wall motion. Trace mitral regurgitation. Trace tricuspid regurgitation. The PA pressure was estimated at 23 mmHg. There is no evidence of significant pericardial effusion. Signed by : Brian Castellano, Electronically Approved : 12/30/2019 08:41:03
== END | disposition home or self-care (01) ==
LOC: ECHO 07:17
PROVIDERS: ATTEND Internal Medicine Cardiovascular Disease
DX: I48.91 Unspecified atrial fibrillation (principal)
CPT/HCPCS: 93306

== ENCOUNTER 2020-10-05 08:58 | Emergency (ER) | payer BC ==
[~2020-10-05] VITALS: Ht 177.8 cm; Wt 74.0 kg
[2020-10-05] MEDS ORDERED: ASPIRIN CHEWABLE 81 MG TABLET. PO ONE (09:30)
--- NOTE | 2020-10-05 09:37 | ED.ADGEN ---
Past Medical History Past Medical History: A-Fib, Other Additional Past Medical Histor: DRUG ABUSE - MARIJUANA DAILY; pneumothorax; gastritis Past Surgical History: No Surgical History Smoking Status: Current Every Day Smoker Alcohol Use: Occasionally Drug Use: Marijuana General Adult EDM: Chief Complaint: CHEST PAIN HPI: HPI: Patient is a 30-year-old male with past medical history of pneumothorax, gastritis, atrial fibrillation who presents to the emergency room complaining of left-sided chest pressure that has been intermittent for the last 2 to 3 days. He states that it came on strong yesterday and will increase and then slowly go away. He denies any associated URI symptoms, cough, fever, chills, shortness of breath, abdominal pain, nausea, vomiting. He states he has had pain like this previously when he has had atrial fibrillation. He has been taking his me dications but states his that it did not help. He denies any kind of diaphoresis. Nothing seems to make the pain better or worse. Pain is not worse with palpation. Review of Systems: Review of Systems: Complete ROS is negative unless otherwise documented in HPI Current Medications: Current Medications Medications (Trade) Dose Ordered Sig/Cristian Start Time Stop Time Status Last Admin Dose Admin Aspirin (Aspirin Chewable) 324 mg 1X ONCE 10/05/20 09:30 10/05/20 09:31 DC 10/05/20 09:28 324 MG Ketorolac Tromethamine (Toradol 30mg Vial) 30 mg 1X ONCE 10/05/20 11:00 10/05/20 11:01 DC 10/05/20 11:16 30 MG Allergies: Allergies: Allergies Coded Allergies Type Severity Reaction Last Updated Verified No Known Drug Allergies 08/24/17 No Physical Exam: PE: General: Awake, alert, NAD. Well Nourished, well hydrated. Cooperative HEENT: Atraumatic, EOMI, PERRL, airway patent, moist oral mucosa Neck: Supple, trachea midline Respiratory: CTA bilaterally, normal effort, no wheezing/crackles CV: RRR, no murmur, cap refill <2 GI: Soft, nondistended, nontender, no masses MSK: No obvious deformities Skin: Warm, dry, intact Neuro: A&O x3, speech NL, sensory and motor grossly intact, no focal deficits Psych: Normal affect, normal mood, not suicidal or homicidal Current Patient Data: Labs: Laboratory Tests Test 10/05/20 09:22 10/05/20 11:15 White Blood Count 5.0 x10^3/uL (4.0-11.0) Red Blood Count 4.48 x10^6/uL (4.30-5.70) Hemoglobin 14.5 g/dL (13.0-17.5) Hematocrit 43.4 % (39.0-53.0) Mean Corpuscular Volume 97 fL (79-100) Mean Corpuscular Hemoglobin 32 pg (25-35) Mean Corpuscular Hemoglobin Concent 33 g/dL (31-37) Red Cell Distribution Width 12.5 % (11.5-14.5) Platelet Count 336 x10^3/uL (140-400) Neutrophils (%) (Auto) 55 % (31-73) Lymphocytes (%) (Auto) 32 % (24-48) Monocytes (%) (Auto) 10 % (0-9) H Eosinophils (%) (Auto) 3 % (0-3) Basophils (%) (Auto) 0 % (0-3) Neutrophils # (Auto) 2.7 x10^3/uL (1.8-7.7) Lymphocytes # (Auto) 1.6 x10^3/uL (1.0-4.8) Monocytes # (Auto) 0.5 x10^3/uL (0.0-1.1) Eosinophils # (Auto) 0.2 x10^3/uL (0.0-0.7) Basophils # (Auto) 0.0 x10^3/uL (0.0-0.2) Sodium Level 141 mmol/L (136-145) Potassium Level 4.1 mmol/L (3.5-5.1) Chloride Level 106 mmol/L (98-107) Carbon Dioxide Level 25 mmol/L (21-32) Anion Gap 10 (6-14) Blood Urea Nitrogen 8 mg/dL (8-26) Creatinine 1.0 mg/dL (0.7-1.3) Estimated GFR (Cockcroft-Gault) 104.8 Glucose Level 73 mg/dL (70-99) Calcium Level 8.0 mg/dL (8.5-10.1) L Troponin I Quantitative < 0.017 ng/mL (0.000-0.055) < 0.017 ng/mL (0.000-0.055) Laboratory Tests 10/05/20 09:22 Laboratory Tests 10/05/20 09:22 Vital Signs: Vital Signs Date Time Temp Pulse Resp B/P (MAP) Pulse Ox O2 Delivery O2 Flow Rate FiO2 10/05/20 11:12 62 16 113/72 (86) 99 Room Air 10/05/20 09:04 98.2 98.2 EKG: EKG: [] Heart Score: C/O Chest Pain: Yes HEART Score for Chest Pain: HEART Score for Chest Pain Response (Comments) Value History Moderately Suspicious 1 ECG Normal 0 Age < 45 0 Risk Factors No Risk Factors 0 Troponin < Normal Limit 0 Total 1 Risk Factors: Risk Factors: DM, Current or recent (<one month) smoker, HTN, HLP, family history of CAD, obesity. Risk Scores: Score 0 - 3: 2.5% MACE over next 6 weeks - Discharge Home Score 4 - 6: 20.3% MACE over next 6 weeks - Admit for Clinical Observation Score 7 - 10: 72.7% MACE over next 6 weeks - Early Invasive Strategies Radiology/Procedures: Radiology/Procedures: [] Course & Med Decision Making: Course & Med Decision Making Pertinent Labs and Imaging studies reviewed. (See chart for details) Patient is a 30 year-old male who presents to the Emergency Room complaining of chest pain. History is significant for atrial fibrillation, gastritis, pneumothorax. At this time, given patient's risk factors and story there is concern for possible cardiac pathology. EKG was ordered and shows normal sinus rhythm. At this time there is no signs of STEMI, pericarditis, or unstable arrthymia on EKG. Patient has received aspirin today. CBC, BMP, troponin, CXR were ordered to evaluate for causes of chest pain including ACS, anemia, electrolyte abnormalities that can lead to arrhythmias, PTX, pneumonia, pneumomediastinum. Patient does not have any abdominal tenderness that would suggest pancreaititis or cholecystitis and does not need an abdominal work up at this time. Patient's HEART score is 1 placing the patient at low risk. Delta troponin is negative. Patient has a follow-up appointment with cardiology on Saturday. Patient's test results and vitals while in the ED were fully reviewed and discussed with the patient. Patient is stable and at this time does not need admission to the hospital. We have discussed strict return precautions and the importance of following up with their Primary Care Physician. Patient stated understanding and was given an opportunity to ask any questions. Patient is in agreement with plan. Renea Disclaimer: Renea Disclaimer: This electronic medical record was generated, in whole or in part, using a voice recognition dictation system. Departure Departure Impression: Primary Impression: Chest pain Disposition: 01 DC HOME SELF CARE/HOMELESS Condition: IMPROVED Referrals: NO PCP (PCP) Patient Instructions: Chest Pain (Nonspecific) NEELA BETTS MD Oct 05, 2020 09:37
[2020-10-05 09:44] LABS: GFR 104.8; POTASSIUM 4.1 mmol/L (3.5-5.1)
[2020-10-05 09:45] LABS: BASO % 0 % (0-3); EOS # 0.2 x10^3/uL (0.0-0.7); EOS % 3 % (0-3); HEMATOCRIT 43.4 % (39.0-53.0); HEMOGLOBIN 14.5 g/dL (13.0-17.5); LYMPH # 1.6 x10^3/uL (1.0-4.8); LYMPH % 32 % (24-48); MEAN CORPUSCULAR HEMOGLOBIN 32 pg (25-35); MEAN CORPUSCULAR HGB CONC 33 g/dL (31-37); MEAN CORPUSCULAR VOLUME 97 fL (79-100); MONO # 0.5 x10^3/uL (0.0-1.1); MONO % 10 % (0-9); NEUT # 2.7 x10^3/uL (1.8-7.7); NEUT % 55 % (31-73); PLATELET COUNT 336 x10^3/uL (140-400); RED BLOOD COUNT 4.48 x10^6/uL (4.30-5.70); RED CELL DISTRIBUTION WIDTH 12.5 % (11.5-14.5)
--- NOTE | 2020-10-05 09:49 | EKG ---
[facility] [address] [place] [address] Test Date: 2020-10-05 Test Time: 09:04:04 Pat Name: GRAY MENARD Department: Room: Gender: M Recruiting Manager: : 1990 Requested By: NEELA BETTS Order Number: [id number] Reading MD: Measurements Intervals [place] Rate: 78 P: -71 [place]: 122 QRS: -32 QRSD: 94 T: 66 QT: 350 QTc: 402 Interpretive Statements SINUS RHYTHM T ABNORMALITY IN ANTERIOR LEADS HIGH LATERAL LEADS ABNORMAL ECG RI6.01 No previous ECG available for comparison
--- NOTE | 2020-10-05 09:50 | RAD ---
INDICATION: Reason: chest pain / Spl. Instructions: / History: COMPARISON: September 2019 FINDINGS: 2 view of chest obtained. Cardiac silhouette is similar prior. There is some fullness of the bilateral pulmonary hilum but this is similar to prior. Mild haziness a t the right chest base medially IMPRESSION: * Mild haziness at right chest base. Could be secondary to atelectasis or early infiltrate. Electronically signed by: Peter Wilkinson MD (10/05/2020 9:47 AM) [id number]
[2020-10-05] MEDS ORDERED: KETOROLAC 30 MG/ML VIAL. IVP ONE (11:00)
[2020-10-05 12:42] VITALS: BP 104/64
== END 2020-10-05 13:00 | disposition home or self-care (01) ==
LOC: ER 08:58
DX: R07.89 Other chest pain (principal); I48.20 Chronic atrial fibrillation, unspecified; F17.200 Nicotine dependence, unspecified, uncomplicated; F12.90 Cannabis use, unspecified, uncomplicated; Z98.890 Other specified postprocedural states
CPT/HCPCS: 36415; 71046; 80048; 84484; 85025; 93005; 96374; 99285; J1885

== ENCOUNTER → 2020-10-07 | Outpatient (CLI) | payer BC ==
[2020-10-05 12:42] VITALS: BP 104/64
--- NOTE | 2020-10-07 14:44 | CARD ---
MR#: [id number] Date of Study: 10/07/2020 Ordering Physician: SATISH OTERO, Referring Physician: SATISH OTERO, Tech: Vangie Decker, [facility] APPROVED REPORT EXAM: Two-dimensional and M-mode echocardiogram with Doppler and color Doppler. Other Information Quality : AverageHR: 77bpm INDICATION Atrial Fibrillation RISK FACTORS Smoking 2D DIMENSIONS RVDd3.3 (2.9-3.5cm)Left Atrium(2D)2.5 (1.6-4.0cm) IVSd1.0 (0.7-1.1cm)Aortic Root(2D)3.3 (2.0-3.7cm) LVDd4.4 (3.9-5.9cm)LVOT Diameter2.0 (1.8-2.4cm) PWd1.0 (0.7-1.1cm)LVDs2.8 (2.5-4.0cm) LVEF(%)60.0 (>50%) Aortic Valve AoV Peak Tai.113.0cm/sAoV VTI20.3cm AO Peak GR.5.1mmHgLVOT Peak Tai.99.2cm/s LVOT VTI 19.08cmAO Mean GR.3mmHg Mitral Valve MV E Kqjrgxhy74.0cm/sMV DECEL [id number] MV A Jjefqabh93.6cm/sMV WTD29ac E/A Ratio1.3MVA (PHT)3.30cm2 TDI E/Lateral E'3.6E/Medial E'5.2 Pulmonary Valve PV Peak Pstnifha58.6cm/sPV Peak Grad.3mmHg Tricuspid Valve TR P. Qhzgfdjp620ux/sRAP FEFLNIVI9mdVu TR Peak Gr.34jrFzPHHV49fpUa Pulmonary Vein S1 Gtrkonoh81.5cm/sD2 Todkjozx06.4cm/s PVa lcesvcxt57mwwa LEFT VENTRICLE The left ventricle is normal size. There is normal left ventricular wall thickness. The left ventricu lar systolic function is normal and the ejection fraction is within normal range. The Ejection Fracti on is 55-60%. There is normal LV segmental wall motion. The left ventricular diastolic function and f illing is normal for age. RIGHT VENTRICLE The right ventricle is normal size. There is normal right ventricular wall thickness. The right ventr icular systolic function is normal. ATRIA The left atrium size is normal. The right atrium size is normal. The interatrial septum is intact wit h no evidence for an atrial septal defect or patent foramen ovale as noted on 2-D or Doppler imaging. AORTIC VALVE The aortic valve is normal in structure and function. Doppler and Color Flow revealed no significant aortic regurgitation. There is no significant aortic valvular stenosis. Calculated aortic valve area is 2.36 cm2 with maximum pressure gradient of 8 mmHg and mean pressure gradient of 4 mmHg. MITRAL VALVE The mitral valve is normal in structure and function. There is no evidence of mitral valve prolapse. There is no mitral valve stenosis. Doppler and Color-flow revealed trace mitral regurgitation. TRICUSPID VALVE The tricuspid valve is normal in structure and function. Doppler and Color Flow revealed trace tricus pid regurgitation with an estimated PAP of 24 mmHg. There is no tricuspid valve stenosis. PULMONIC VALVE The pulmonic valve is not well visualized. Doppler and Color Flow revealed trace pulmonic valvular re gurgitation. There is no pulmonic valvular stenosis. GREAT VESSELS The aortic root is normal in size. The IVC is normal in size and collapses >50% with inspiration. PERICARDIAL EFFUSION There is no evidence of significant pericardial effusion. Critical Notification Critical Value: No <Conclusion> The left ventricular systolic function is normal and the ejection fraction is within normal range. Th e Ejection Fraction is 55-60%. There is normal LV segmental wall motion. Signed by : Satish Otero, Electronically Approved : 10/07/2020 14:44:23
== END ==
LOC: ECHO 11:36
PROVIDERS: ATTEND Internal Medicine Cardiovascular Disease
DX: I48.0 Paroxysmal atrial fibrillation (principal)
CPT/HCPCS: 93306